=== PATIENT | male | born 1945 | race Caucasian/White ===

== ENCOUNTER 2021-03-28 09:25 | Outpatient (RCR) | payer MEDICARE ==
[~2021-03-28 09:25] MED LIST: ASCO-262 PO; ASPI-1238 PO; ATOR80TA76 PO; CALC-823 PO; LOSA100T57 PO; METO50TA7 PO; MULT-1061 PO; NFBIOT1000 PO; OMG1KC PO; OXYC-12 PO; PANT40TA52 PO; TICA90TA PO; UBID1CAP53 PO; VITA1TAB17 PO
== END 2021-04-05 | disposition home or self-care (01) ==
LOC: CR 09:25
PROVIDERS: ATTEND Family Medicine
DX: I21.4 Non-ST elevation (NSTEMI) myocardial infarction (principal); J90 Pleural effusion, not elsewhere classified; I51.7 Cardiomegaly
CPT/HCPCS: 93798

== ENCOUNTER → 2022-04-10 | Outpatient (CLI) | payer MEDICARE | LOC: CARD 09:08 | PROVIDERS: ATTEND Physician Assistant | DX: I25.10 Atherosclerotic heart disease of native coronary artery without angina pectoris (principal); I35.1 Nonrheumatic aortic (valve) insufficiency; I10 Essential (primary) hypertension | CPT/HCPCS: 93306 ==

== ENCOUNTER → 2022-05-14 | Outpatient (CLI) | payer MEDICARE | LOC: CARD 10:30 | PROVIDERS: ATTEND Family Medicine | DX: I49.9 Cardiac arrhythmia, unspecified (principal) | CPT/HCPCS: 93005 ==

== ENCOUNTER → 2023-01-08 | Outpatient (CLI) | payer MEDICARE ==
[~2023-01-08] MED LIST changes: +CATHETER FLUSH 10 ML SYR IVP PRN
[2023-01-08 08:54] VITALS: BP 139/85
[2023-01-08 09:00] VITALS: BP 180/80
--- NOTE | 2023-01-08 13:51 | Cardiology Stress Test Report ---
Stress Test Report Date of Procedure/Referring: Date of Procedure: Jan 08, 2023 PCP Rainer López DO Admitting Physician Admitting Physician: Attending Physician: Rosie Guzman Baseline Heart Rate: 58 Baseline Blood Pressure: Blood Pressure Systolic: 180 Blood Pressure Diastolic: 80 Vital Signs Date Time Temp Pulse Resp B/P (MAP) Pulse Ox O2 Delivery O2 Flow Rate FiO2 01/08/23 08:54 63 17 139/85 (103) 99 Baseline Vital Signs Vital Signs Date Time Temp Pulse Resp B/P (MAP) Pulse Ox O2 Delivery O2 Flow Rate FiO2 01/08/23 08:54 63 17 139/85 (103) 99 Baseline EKG: Baseline EKG: NSR Summary: After explaining the procedure and details to the patient, he signed the consent and was brought to the stress nuclear laboratory. Patient exercised on standard Luis Carlos protocol, EKG, heart rate and blood pressure were monitored continuously, resting and stress doses of radio tracer were injected, imaging was acquired and reviewed in the short axis, horizontal long axis and vertical long axis views Patient was able to exercise for a total of 4 minutes on Luis Carlos protocol, METs 5.8 Maximum heart rate 167 Maximum blood pressure 198/93 Stress EKG, Minimal nondiagnostic changes Recovery EKG, Return to baseline TID: 0.98 SSS: 5 SDS: 4 Conclusion: Fair exercise tolerance for a total of 4 minutes on standard Luis Carlos protocol, 5.8 METS achieving over 100% of maximal expected heart rate Appropriate heart rate response to exercise with hypertensive response to exercise with peak blood pressure 198/93 return to baseline during recovery Nondiagnostic EKG changes with exercise patient had nonspecific T wave abnormality with upsloping ST depression in lead II, 3, aVF, occasional PVCs. Diaphragmatic attenuation with mild decrease uptake at the mid to apical inferior wall with mild reversibility overall there is no significant ischemia or infarction on SPECT images No gated images were done on this study. Copy Copies To 1: RAINER LÓPEZ BASHAR J MD Jan 08, 2023 13:51
== END ==
LOC: CARD 06:59
PROVIDERS: ATTEND Physician Assistant
DX: I25.10 Atherosclerotic heart disease of native coronary artery without angina pectoris (principal); I10 Essential (primary) hypertension; J98.6 Disorders of diaphragm
CPT/HCPCS: 78452; A9502

== ENCOUNTER 2023-05-29 18:10 | Inpatient (IN) | payer MEDICARE ==
[~2023-05-29] VITALS: Ht 176.5 cm; Wt 81.0 kg
[~2023-05-29 18:10] MED LIST changes: -CATHETER FLUSH 10 ML SYR IVP PRN; -LOSA100T57 PO; +LOSA100T58 PO
--- NOTE | 2023-05-29 18:46 | ED Fall/Injury ---
General Chief Complaint: Hip/Pelvic Problems Stated Complaint: FELL WALKING DOG, WHOLE RT LEG PAIN Nursing Triage Note: PT STATES HE WAS WALKING TWO DOGS AND THEY PULLED HIM OVER, CC OF RT HIP/LEG PAIN, DENIES LOC, NO HEAD OR NECK PAIN. ABRASION TO RT KNEE AND CANNOT BEAR WEIGHT ON RT LEG Source: patient History of Present Illness Date Seen by Provider: May 29, 2023 Time Seen by Provider: 18:32 Initial Comments PT ARRIVES VIA POV, WHEELCHAIR ON ARRIVAL PT STATES HE WAS WALKING 2 DOGS AND THEY PULLED HIM OVER, AND HE FELL, LANDING ON HIS RIGHT HIP AND LEG--FELL ONTO PAVEMENT OCCURRED JUST PRIOR TO ARRIVAL DID NOT HIT HEAD AND NO LOSS OF CONSCIOUSNESS NO NECK OR BACK PAIN C/O PAIN FROM RIGHT HIP TO RIGHT KNEE AND STATES HE CANNOT BEAR WEIGHT ON RIGHT LEG HAS MINOR ABRASION TO RIGHT KNEE NO PARESTHESIAS OR MOTOR DEFICITS NO PRIOR INJURY OR PROBLEMS WITH THIS LEG/HIP PT IS ON ASPIRIN, NO OTHER BLOOD THINNERS PT HAS HISTORY OF CAD/IA/STENTS X 2 PT IS UP TO DATE ON TETANUS VACCINE PCP: DR. MANCUSO PARTS CONSULTANT: DR. COLEMAN Allergies and Home Medications Allergies Coded Allergies: No Known Drug Allergies (Verified , 04/06/09) Patient Home Medication List Ascorbate Calcium (Vitamin C) 500 Mg Tablet, 500 MG PO DAILY, (Reported) Entered as Reported by: YUSUF CARRERA on 12/21/20 115 Aspirin (Aspirin EC) 81 Mg Tablet.dr, 81 MG PO DAILY, (Reported) Entered as Reported by: YUSUF CARRERA on 12/21/20 115 Atorvastatin Calcium (Atorvastatin Calcium) 80 Mg Tablet, 80 MG PO HS Prescribed by: DEB COLEMAN on 12/23/20633 Biotin (Biotin) 1,000 Mcg Tablet, 1,000 MCG PO DAILY, (Reported) Entered as Reported by: YUSUF CARRERA on 12/21/20 115 Calcium Carbonate (Calcium) 500 Mg Tablet, 500 MG PO DAILY, (Reported) Entered as Reported by: YUSUF CARRERA on 12/21/20 115 Losartan Potassium (Losartan Potassium) 100 Mg Tablet, 100 MG PO DAILY Prescribed by: DEB COLEMAN on 12/23/20633 Metoprolol Succinate (Metoprolol Succinate) 50 Mg Tab.er.24h, 50 MG PO DAILY Prescribed by: DEB COLEMAN on 12/23/20633 Multivit-Min/FA/Lycopen/Lutein (Centrum Silver Men Tablet) 1 Each Tablet, 1 EACH PO DAILY, (Reported) Entered as Reported by: YUSUF CARRERA on 12/21/201153 [place] 3 Polyunsat Fatty Acids (Fish Oil 1,000 mg Capsule) 1,000 Mg Cap, 1,000 MG PO BID WITH MEALS Prescribed by: DEB COLEMAN on 12/23/20633 Pantoprazole Sodium (Pantoprazole Sodium) 40 Mg Tablet.dr, 40 MG PO DAILY Prescribed by: DEB COLEMAN on 12/23/20633 Ticagrelor (Brilinta) 90 Mg Tablet, 90 MG PO BID Prescribed by: DEB COLEMAN on 12/23/20633 Ubidecarenone/Vit E Acetate (Co Q-10 100 mg Softgel) 1 Each Capsule, 1 EACH PO DAILY, (Reported) Entered as Reported by: YUSUF CARRERA on 12/21/201153 Vitamin B Complex (Vitamin B Complex) 1 Each Tablet, 1 EACH PO DAILY, (Reported) Entered as Reported by: YUSUF CARRERA on 12/21/20 115 Review of Systems Review of Systems Constitutional: no symptoms reported Ears, Nose, Mouth, Throat: no symptoms reported Respiratory: no symptoms reported Cardiovascular: no symptoms reported Gastrointestinal: no symptoms reported Genitourinary: no symptoms reported Musculoskeletal: see HPI Skin: see HPI Psychiatric/Neurological: No Symptoms Reported Past Tshnbkm-Lxbzne-Sncokg Hx Patient Social History Tobacco Use?: No Substance use?: No Alcohol Use?: No Past Medical History Surgery/Hospitalization HX: AMI WITH STENTS Surgeries: Yes (BILAT INGUINAL HERNIA REPAIR X 2; CARDIAC CATH-STENTS X 2; LEFT KNEE SURGER) Abdominal, Cardiac, Coronary Stent, Orthopedic, Tonsillectomy Respiratory: No Cardiac: Yes (NSTEMI WITH STENTS X 2 TO LAD 12/2020) Coronary Artery Disease, Heart Attack, Hypertension Neurological: No Reproductive Disorders: No Sexually Transmitted Disease: No Genitourinary: No Gastrointestinal: Yes (INGUINAL HERNIAS) Abdominal Hernia Musculoskeletal: No Endocrine: No HEENT: No Cancer: No Psychosocial: No Integumentary: No Blood Disorders: No Family Medical History Heart Disease, CAD Over 55 Years Old Father - CAD, [place] Mother - CAD, COPD PAST SURGICAL HISTORY: -BILATERAL INGUINAL HERNIA REPAIRS -CARDIAC CATH WITH STENTS X 2 TO LAD 12/2020--BY DR. COLEMAN Physical Exam Vital Signs Vital Signs - First Documented 05/29/23 18:22 Temp 36.7 Pulse 74 Resp 18 B/P (MAP) 129/78 (95) Pulse Ox 93 O2 Delivery Room Air Capillary Refill : Less Than 3 Seconds Height, Weight, BMI Height: '" Weight: lbs. oz. kg; 24.00 BMI Method: General Appearance: WD/WN, no apparent distress, other (SMILING, TALKS NON-STOP AND VERY DIFFICULT TO KEEP ON SUBJECT--WANTS TO TALK ABOUT EVERYTHING EXCEPT WHY HE IS HERE. PT IS ABLE TO STAND AND BEAR WEIGHT ON RIGHT LEG WITH TRANSFER FROM WHEELCHAIR TO ER COT) Neck: normal inspection Cardiovascular: normal peripheral pulses, regular rate, rhythm, no murmur Respiratory: chest non-tender, normal breath sounds, no respiratory distress, no accessory muscle use Peripheral Pulses: 1+ Dorsalis Pedis (R), 1+ Left Dors-Pedis (L) Gastrointestinal: non tender, soft Back: normal inspection, no CVA tenderness, no vertebral tenderness Extremities: no pedal edema, no calf tenderness, normal capillary refill, other (MILD TENDERNESS FROM RIGHT HIP TO RIGHT KNEE. VERY MINOR ABRASION TO RIGHT KNEE--NO BLEEDING. NO SWELLING OR DEFORMITY. DISTAL MOTOR/SENSORY/VASCULAR INTA CT. ) Neurologic/Psychiatric: machine heel seat laster II-XII nml as tested, no motor/sensory deficits, alert, normal mood/affect, oriented x 3 Skin: normal color, warm/dry [place] Coma Score Best Eye Response: (4) Open Spontaneously Best Verbal Response: (5) Oriented Best Motor Response: (6) Obeys Commands [place] Total: 15 Progress/Results/Core Measures Results/Orders Lab Results Laboratory Tests Test 05/29/23 19:15 Range/Units White Blood Count 5.0 4.3-11.0 10^3/uL Red Blood Count 4.06 L 4.30-5.52 10^6/uL Hemoglobin 13.3 13.3-17.7 g/dL Hematocrit 41 40-54 % Mean Corpuscular Volume 101 H 80-99 fL Mean Corpuscular Hemoglobin 33 25-34 pg Mean Corpuscular Hemoglobin Concent 33 32-36 g/dL Red Cell Distribution Width 13.8 10.0-14.5 % Platelet Count 156 130-400 10^3/uL Mean Platelet Volume 10.9 9.0-12.2 fL Immature Granulocyte % (Auto) 0 % Neutrophils (%) (Auto) 58 42-75 % Lymphocytes (%) (Auto) 22 12-44 % Monocytes (%) (Auto) 11 0-12 % Eosinophils (%) (Auto) 8 0-10 % Basophils (%) (Auto) 1 0-10 % Neutrophils # (Auto) 2.9 1.8-7.8 10^3/uL Lymphocytes # (Auto) 1.1 1.0-4.0 10^3/uL Monocytes # (Auto) 0.5 0.0-1.0 10^3/uL Eosinophils # (Auto) 0.4 H 0.0-0.3 10^3/uL Basophils # (Auto) 0.0 0.0-0.1 10^3/uL Immature Granulocyte # (Auto) 0.0 0.0-0.1 10^3/uL Prothrombin Time 13.4 12.2-14.7 SEC INR Comment 1.0 0.8-1.4 Activated Partial Thromboplast Time 28 24-35 SEC My Orders Orders - MAX,CONG K DO Femur, Right, 2 Views (05/29/23 18:32) Knee, Right, 3 Views (05/29/23 18:32) Pelvis With Right Hip 2-3views (05/29/23 18:32) Ed Iv/Invasive Line Start (05/29/23 19:12) Monitor-Rhythm Ecg Trace Only (05/29/23 19:12) Cbc With Automated Diff (05/29/23 19:12) Comprehensive Metabolic Panel (05/29/23 19:12) Protime With Inr (05/29/23 19:12) Partial Thromboplastin Time (05/29/23 19:12) Ed Iv/Invasive Line Start (05/29/23 19:12) Lactated Ringers 1,000 Ml (Lactated Ring (05/29/23 19:15) Chest 1 View, Ap/Pa Only (05/29/23 19:12) Fentanyl Injection (Fentanyl Injection (05/29/23 19:12) Ekg Tracing (05/29/23 19:19) Ed Admission (Communication) (05/29/23 19:20) Medications Given in ED Current Medications Medications Dose Ordered Sig/Vivian Route Start Time Stop Time Status Last Admin Dose Admin Lactated Ringer's 1,000 ml @ 0 mls/hr Q0M ONCE IV 05/29/23 19:15 05/29/23 19:16 DC 05/29/23 19:34 1,000 MLS/HR Vital Signs/I&O 05/29/23 18:22 Temp 36.7 Pulse 74 Resp 18 B/P (MAP) 129/78 (95) Pulse Ox 93 O2 Delivery Room Air Blood Pressure Mean: 95 Initial ECG Impression Date: May 29, 2023 Initial ECG Impression Time: 19:32 Initial ECG Rate: 73 Initial ECG Rhythm: Normal Sinus (WITH PVC'S AND PAC'S; LAFB) Initial ECG Intervals AR 189 QRS 117 QT/QTC 379/405 Initial ECG Impression: Nonspecific Changes Diagnostic Imaging Comments XRAYS--PER RADIOLOGIST REPORTS AT 191 PELVIS AND RIGHT HIP-- FINDINGS: There is a minimally displaced right intertrochanteric femur fracture. The right hip is not dislocated. There is no joint space loss of the right hip. 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 The pubic symphysis and sacroiliac joints are normally aligned. There are degenerative changes of the imaged lower lumbar spine. IMPRESSION: 1. Very mildly displaced fracture of the right intertrochanteric femur. RIGHT FEMUR-- FINDINGS: There is a very mildly displaced right intertrochanteric femur fracture. The right hip is not dislocated. There is no joint space loss of the right hip. There is no identified additional fracture of the more mid to distal aspect of the right femur. IMPRESSION: 1. Very mildly displaced right intertrochanteric femur fracture. RIGHT KNEE-- FINDINGS: There is no identified acute fracture. The joint spaces are well preserved. There is no knee joint effusion. There is no radiopaque foreign body. IMPRESSION: 1. Unremarkable radiographs of the right knee. Reviewed: Reviewed by Me Departure Communication (Admissions) 1914--SPOKE WITH DR. ACEVES, ORTHOPEDIC SURGEON. ADVISES TO ADMIT TO HOSPITALIST. WILL PLAN ON TAKING TO SURGERY TOMORROW 1917--SPOKE WITH DR. PENDLETON, HOSPITALIST, ACCEPTS PT FOR ADMIT. SHE WILL DO ADMIT ORDERS. Impression Primary Impression: Closed intertrochanteric fracture of right hip Additional Impressions: HX OF CAD WITH STENTS HTN (hypertension) Disposition: ADMITTED INPATIENT Condition: Stable Admissions Decision to Admit Reason: Admit from ER (General) Decision to Admit/Date: May 29, 2023 Time/Decision to Admit Time: 19:15 Departure-Patient Inst. Referrals: RODNEY MANCUSO DO (PCP/Family) Primary Care Physician CONG SANTANA DO May 29, 2023 18:46
[2023-05-29] MEDS ORDERED: fentaNYL INJECTION 100 MCG/2 ML VIAL IVP STA (19:12)
--- NOTE | 2023-05-29 19:13 | Diagnostic Imaging Report ---
EXAMINATION: Right femur radiographs, 2 views, 4 images. COMPARISON: None. HISTORY: 78-year-old male, fall. Right femur pain. FINDINGS: There is a very mildly displaced right intertrochanteric femur fracture. The right hip is not dislocated. There is no joint space loss of the right hip. There is no identified additional fracture of the more mid to distal aspect of the right femur. IMPRESSION: 1. Very mildly displaced right intertrochanteric femur fracture. Dictated by: Dictated on workstation # [id number]
--- NOTE | 2023-05-29 19:13 | Diagnostic Imaging Report ---
EXAMINATION: Pelvis, single view. Right hip, 2 views. COMPARISON: None. HISTORY: 78-year-old male, injury. Right hip pain. FINDINGS: There is a minimally displaced right intertrochanteric femur fracture. The right hip is not dislocated. There is no joint space loss of the right hip. 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 The pubic symphysis and sacroiliac joints are normally aligned. There are degenerative changes of the imaged lower lumbar spine. IMPRESSION: 1. Very mildly displaced fracture of the right intertrochanteric femur. Dictated by: Dictated on workstation # [id number]
--- NOTE | 2023-05-29 19:14 | Diagnostic Imaging Report ---
EXAMINATION: Right knee radiographs, 3 views. COMPARISON: None. HISTORY: 78-year-old male, right knee pain. FINDINGS: There is no identified acute fracture. The joint spaces are well preserved. There is no knee joint effusion. There is no radiopaque foreign body. IMPRESSION: 1. Unremarkable radiographs of the right knee. Dictated by: Dictated on workstation # [id number]
[2023-05-29] MEDS ORDERED: LACTATED RINGERS 1,000 ML 1,000 ML IV ONE (19:15)
--- NOTE | 2023-05-29 19:26 | Diagnostic Imaging Report ---
EXAMINATION: Chest radiograph, portable AP view. DATE: 05/29/2023 7:21 PM INDICATION: 78-year-old male, fall. Chest pain. COMPARISON: December 20, 2020. FINDINGS: Heart size and mediastinal contours are unchanged. There is no identified pneumothorax. There is no large pleural effusion. There is no identified focal airspace consolidation. There are bilateral acromioclavicular degenerative changes. IMPRESSION: 1. No identified acute cardiopulmonary abnormality. Dictated by: Dictated on workstation # [id number]
[2023-05-29 19:27] LABS: BASOPHILS % (AUTO) 1 % (0-10); EOSINOPHILS # (AUTO) 0.4 10^3/uL (0.0-0.3); EOSINOPHILS % (AUTO) 8 % (0-10); HEMATOCRIT 41 % (40-54); HEMOGLOBIN 13.3 g/dL (13.3-17.7); LYMPHOCYTES # (AUTO) 1.1 10^3/uL (1.0-4.0); LYMPHOCYTES % (AUTO) 22 % (12-44); MEAN CORPUSCULAR HEMOGLOBIN 33 pg (25-34); MEAN CORPUSCULAR HGB CONC 33 g/dL (32-36); MEAN CORPUSCULAR VOLUME 101 fL (80-99); MEAN PLATELET VOLUME 10.9 fL (9.0-12.2); MONOCYTES # (AUTO) 0.5 10^3/uL (0.0-1.0); MONOCYTES % (AUTO) 11 % (0-12); NEUTROPHILS # (AUTO) 2.9 10^3/uL (1.8-7.8); NEUTROPHILS % (AUTO) 58 % (42-75); PLATELET COUNT 156 10^3/uL (130-400)
[2023-05-29 19:37] LABS: PROTHROMBIN TIME PATIENT 13.4 SEC (12.2-14.7)
[2023-05-29 19:52] LABS: ALBUMIN 3.8 GM/DL (3.2-4.5); BILIRUBIN,TOTAL 0.9 MG/DL (0.1-1.0); CALCIUM 9.3 MG/DL (8.5-10.1); CREATININE SERUM 1.89 MG/DL (0.60-1.30); POTASSIUM 4.7 MMOL/L (3.6-5.0); TOTAL PROTEIN 6.2 GM/DL (6.4-8.2)
[2023-05-29 20:56] VITALS: BP 163/85
[2023-05-29] MEDS ORDERED: diphenhydrAMINE 25 MG TABLET PO PRN (21:00)
[2023-05-29] MEDS ORDERED: CALCIUM CARBONATE 500 MG CHEW TABLET PO PRN (21:00)
[2023-05-29] MEDS ORDERED: diphenhydrAMINE INJ 50 MG/ML VIAL IVP PRN (21:00)
[2023-05-29] MEDS ORDERED: MILK OF MAGNESIA 400 MG/5 ML 30 ML UDC PO PRN (21:00)
[2023-05-29] MEDS ORDERED: BISACODYL 10 MG SUPPOSITORY PR PRN (21:00)
[2023-05-29] MEDS ORDERED: ANTACID SUSPENSION 30 ML UDC PO PRN (21:00)
[2023-05-29] MEDS ORDERED: LACTULOSE SYRUP 10GM/15ML 30ML UDC PO PRN (21:00)
[2023-05-29] MEDS ORDERED: hydrALAZINE INJECTION 20 MG/ML VIAL IV PRN (21:00)
[2023-05-29] MEDS ORDERED: ONDANSETRON 4 MG ORAL DISSOLVE TABLET PO PRN (21:00)
[2023-05-29] MEDS ORDERED: MELATONIN 3 MG TABLET PO PRN (21:00)
[2023-05-29] MEDS ORDERED: ACETAMINOPHEN 325 MG TABLET PO PRN (21:00)
[2023-05-29] MEDS ORDERED: ONDANSETRON INJECTION 4 MG/2 ML (SDV) IV PRN (21:00)
[2023-05-29] MEDS: inSUlin ASPART 1 UNIT/0.01 ML (PER UNIT) SC SCH (21:15)
[2023-05-29] MEDS: DOCUSATE SODIUM 100 MG CAPSULE PO SCH (21:16)
[2023-05-29] MEDS: SENNOSIDES 8.6 MG TABLET PO SCH (21:17)
[2023-05-29] MEDS: oxyCODONE IMMEDIATE RELEASE 5 MG TABLET PO PRN (21:56)
[2023-05-29] MEDS: NS IV 1000 ML 1,000 ML IV SCH (21:57)
[2023-05-29] MEDS: HYDROmorphone INJECTION 2 MG/ML VIAL IV PRN (23:38)
[2023-05-30] VITALS (14 sets, daily range): BP systolic 124–174; BP diastolic 69–98
[2023-05-30] MEDS: HYDROmorphone INJECTION 2 MG/ML VIAL IV PRN ×3 (02:47→18:46)
[2023-05-30] MEDS ORDERED: LIDOCAINE UROJET 2% GEL 10 ML PKG ONE (06:19)
[2023-05-30 06:25] LABS: BASOPHILS % (AUTO) 0 % (0-10); HEMATOCRIT 38 % (40-54); HEMOGLOBIN 12.6 g/dL (13.3-17.7); MEAN CORPUSCULAR HEMOGLOBIN 33 pg (25-34); MEAN CORPUSCULAR HGB CONC 33 g/dL (32-36); MEAN CORPUSCULAR VOLUME 98 fL (80-99)
[2023-05-30 06:27] LABS: EOSINOPHILS # (AUTO) 0.2 10^3/uL (0.0-0.3); EOSINOPHILS % (AUTO) 2 % (0-10); LYMPHOCYTES # (AUTO) 1.4 10^3/uL (1.0-4.0); LYMPHOCYTES % (AUTO) 18 % (12-44); MEAN PLATELET VOLUME 11.2 fL (9.0-12.2); MONOCYTES # (AUTO) 0.8 10^3/uL (0.0-1.0); MONOCYTES % (AUTO) 11 % (0-12); NEUTROPHILS % (AUTO) 68 % (42-75); PLATELET COUNT 128 10^3/uL (130-400); WHITE BLOOD COUNT 7.4 10^3/uL (4.3-11.0)
[2023-05-30 06:42] LABS: ALBUMIN 3.4 GM/DL (3.2-4.5); POTASSIUM 4.1 MMOL/L (3.6-5.0)
[2023-05-30 06:44] LABS: CALCIUM 8.8 MG/DL (8.5-10.1)
[2023-05-30 06:45] LABS: TOTAL PROTEIN 5.8 GM/DL (6.4-8.2)
--- NOTE | 2023-05-30 06:45 | Progress Note-Pre Operative ---
Pre-Operative Progress Note Date of Available H&P: May 30, 2023 Date H&P Reviewed: May 30, 2023 Time H&P Reviewed: 06:44 Changes from last HP none Pre-Operative Diagnosis: right intertrochanteric femur fracture ONEIDA ACEVES MD May 30, 2023 06:45
[2023-05-30 06:46] LABS: BILIRUBIN,TOTAL 0.9 MG/DL (0.1-1.0)
--- NOTE | 2023-05-30 06:46 | Progress Note-Post Operative ---
Post-Operative Progess Note Surgeon (s)/Application Design Engineer (s) Surgeon ONEIDA ACEVES MD Application Design Engineer: Frantz Terrell Pre-Operative Diagnosis right intertrochanteric femur fracture Post-Operative Diagnosis right intertrochanteric femur fracture Procedure & Operative Findings Date of Procedure 05/30/23 Procedure Performed/Findings right hip IM christiane Anesthesia Type GETA Estimated Blood Loss Estimated blood loss (mL): 100ml Specimens/Packing Specimens Removed none Packing: none ONEIDA ACEVES MD May 30, 2023 06:46
[2023-05-30 06:48] LABS: CREATININE SERUM 1.46 MG/DL (0.60-1.30)
--- NOTE | 2023-05-30 06:49 | Progress Note ---
Standard Progress Note Progress Notes/Assess & Plan Date Seen by a Provider: May 30, 2023 Time Seen by a Provider: 06:35 Progress/Assessment & Plan patient seen and examined consult dictated plan or OR this afternoon ONEIDA ACEVES MD May 30, 2023 06:49
[2023-05-30] MEDS: inSUlin ASPART 1 UNIT/0.01 ML (PER UNIT) SC SCH ×4 (06:52→20:25)
--- NOTE | 2023-05-30 06:57 | CONSULTATION REPORT ---
DATE OF SERVICE: 05/30/2023 REASON FOR CONSULTATION: Right intertrochanteric femur fracture. HISTORY OF PRESENT ILLNESS: The patient is a 78-year-old active gentleman who fell while walking his dogs. He complained of right hip pain and was found to have a minimally displaced right intertrochanteric femur fracture, for which I was consulted. He denies antecedent pain. ALLERGIES: No known drug allergies. MEDICATIONS: Calcium, aspirin, atorvastatin, losartan, metoprolol, pantoprazole, Brilinta. PAST MEDICAL HISTORY: Coronary artery disease with stent placement, hypertension. PAST SURGICAL HISTORY: Bilateral inguinal herniorrhaphy, coronary stent placement. ORTHOPEDIC EXAM: EXTREMITIES: The right lower extremity demonstrates tenderness laterally at his hip. He has intact dorsiflexion and plantarflexion of the toes. Pulses are symmetric. Sensation is intact to light touch. Radiographs reveal a nondisplaced right intertrochanteric femur fracture. IMPRESSION: Right intertrochanteric femur fracture. PLAN: Right hip intramedullary nail. The risks, benefits, options, ramifications and recovery were discussed at length with the patient. He understands and wishes to proceed. Job ID: [id number] DocumentID: [id number] Dictated Date: 05/30/2023 06:48:40 Ecosystem Ecology Professor Date: 05/30/2023 06:55:00 Dictated By: ONEIDA ACEVES MD
[2023-05-30] MEDS: SENNOSIDES 8.6 MG TABLET PO SCH ×2 (08:32→22:10)
[2023-05-30] MEDS: DOCUSATE SODIUM 100 MG CAPSULE PO SCH ×2 (08:32→22:10)
[2023-05-30] MEDS: NS IV 1000 ML 1,000 ML IV SCH ×2 (09:08→20:57)
--- NOTE | 2023-05-30 10:38 | Consultation-Cardiology ---
HPI-Cardiology Cardiology Consultation: Date of Consultation 05/30/23 Date of Admission Attending Physician Rainer López DO Admitting Physician Admitting Physician: Raeann Velázquez DO Attending Physician: Raeann Velázquez DO Consulting Physician PRICILA RUTHERFORD MD HPI: Time Seen by a Provider: 08:50 Mr. Ball is a 78-year-old gentleman with a history of CAD status post PCI in 2020, hypertension who presents after a fall. Patient sustained a right intertrochanteric femoral fracture. Cardiology is now consulted to aid in evaluation. Patient states that he remains active. He works out several days a week. He walks on the treadmill for 1 hour at 3.2 mph up to 3% incline, uses the weight machines and also lift free weights. He has no issues with doing this. He can climb a flight of stairs without any issue. With this specific occasion, he was walking his neighbors dogs. 1 dog ran off after car and he was pulled to the ground and dragged a bit. Stated that he was unable to get up and knew something was wrong with his right leg. He came into the emergency room was found to have a right intertrochanteric femoral fracture. He is now heading for open reduction and internal fixation. He denies any chest discomfort, shortness of breath, palpitations, presyncope, syncope, PND, orthopnea, lower extremity edema, acute onset pain radiating to his neck jaw or back. Chest x- ray is negative for any acute intrathoracic process. EKG demonstrates atrial bigeminy with PVCs, incomplete interventricular conduction delay and LVH with repolarization abnormalities, relatively stable from prior. Review of Systems-Cardiology All Other Systems Reviewed Negative Unless Noted: Yes (All systems were reviewed and are negative except what is been described in HPI) QNY-Ivjvva-Pxfley Hx Patient Social History Alcohol Use?: No Pt feels they are or have been: No Immunizations Up To Date Date of Pneumonia Vaccine: Sep 15, 2010 Past Medical History PMH As described under Assessment. Family Medical History Family Medical History: Father with [place] and CABG Social history: Tobacco: Denies EtOH: Rare Illicit: Denies Allergies and Home Medications Allergies Coded Allergies: No Known Drug Allergies (Verified , 04/06/09) Patient Home Medication List Home Medication List Reviewed: Yes Ascorbate Calcium (Vitamin C) 500 Mg Tablet, 500 MG PO DAILY, (Reported) Entered as Reported by: YUSUF CARRERA on 12/21/201153 Aspirin (Aspirin EC) 81 Mg Tablet.dr, 81 MG PO DAILY, (Reported) Entered as Reported by: YUSUF CARRERA on 12/21/201153 Last Action: Last Taken Edited Atorvastatin Calcium (Atorvastatin Calcium) 80 Mg Tablet, 80 MG PO HS Prescribed by: DEB COLEMAN on 12/23/20633 Last Action: Last Taken Edited Biotin (Biotin) 1,000 Mcg Tablet, 1,000 MCG PO DAILY, (Reported) Entered as Reported by: YUSUF CARRERA on 12/21/201153 Calcium Carbonate (Calcium) 500 Mg Tablet, 500 MG PO DAILY, (Reported) Entered as Reported by: YUSUF CARRERA on 12/21/201153 Losartan Potassium (Losartan Potassium) 100 Mg Tablet, 100 MG PO DAILY Prescribed by: DEB COLEMAN on 12/23/20633 Last Action: Last Taken Edited Metoprolol Succinate (Metoprolol Succinate) 50 Mg Tab.er.24h, 50 MG PO DAILY Prescribed by: DEB COLEMAN on 12/23/20633 Last Action: Last Taken Edited Multivit-Min/FA/Lycopen/Lutein (Centrum Silver Men Tablet) 1 Each Tablet, 1 EACH PO DAILY, (Reported) Entered as Reported by: YUSUF CARRERA on 12/21/201153 [place] 3 Polyunsat Fatty Acids (Fish Oil 1,000 mg Capsule) 1,000 Mg Cap, 1,000 MG PO BID WITH MEALS Prescribed by: DEB COLEMAN on 12/23/20633 Pantoprazole Sodium (Pantoprazole Sodium) 40 Mg Tablet.dr, 40 MG PO DAILY Prescribed by: DEB COLEMAN on 12/23/20633 Last Action: Last Taken Edited Ticagrelor (Brilinta) 90 Mg Tablet, 90 MG PO BID Prescribed by: DEB COLEMAN on 12/23/20633 Ubidecarenone/Vit E Acetate (Co Q-10 100 mg Softgel) 1 Each Capsule, 1 EACH PO DAILY, (Reported) Entered as Reported by: YUSUF CARRERA on 12/21/201153 Vitamin B Complex (Vitamin B Complex) 1 Each Tablet, 1 EACH PO DAILY, (Reported) Entered as Reported by: YUSUF CARRERA on 4/8/21 1154 Exam Vital Signs Vital Signs Date Time Temp Pulse Resp B/P (MAP) Pulse Ox O2 Delivery O2 Flow Rate FiO2 05/30/23 07:55 37.0 60 16 139/82 (101) 95 Room Air 05/29/23 21:20 21 Physical Exam Gen: NAD, resting comfortably Neck: No bruits, no JVD Lungs: CTA B; no w-r-r CV: nl s1/s2; no g-r; + 1-2/6 systolic murmur along LSB (likely flow murmur); regular rate and rhythm Abd: + BS, soft NT,ND; no hepatosplenomegaly. Ext: 2+ radial and DP pulses; no c-c-e, wwp Labs Laboratory Tests Test 05/29/23 19:15 05/30/23 05:46 Range/Units White Blood Count 5.0 7.4 4.3-11.0 10^3/uL Red Blood Count 4.06 L 3.85 L 4.30-5.52 10^6/uL Hemoglobin 13.3 12.6 L 13.3-17.7 g/dL Hematocrit 41 38 L 40-54 % Mean Corpuscular Volume 101 H 98 80-99 fL Mean Corpuscular Hemoglobin 33 33 25-34 pg Mean Corpuscular Hemoglobin Concent 33 33 32-36 g/dL Red Cell Distribution Width 13.8 13.8 10.0-14.5 % Platelet Count 156 128 L 130-400 10^3/uL Mean Platelet Volume 10.9 11.2 9.0-12.2 fL Immature Granulocyte % (Auto) 0 0 % Neutrophils (%) (Auto) 58 68 42-75 % Lymphocytes (%) (Auto) 22 18 12-44 % Monocytes (%) (Auto) 11 11 0-12 % Eosinophils (%) (Auto) 8 2 0-10 % Basophils (%) (Auto) 1 0 0-10 % Neutrophils # (Auto) 2.9 5.0 1.8-7.8 10^3/uL Lymphocytes # (Auto) 1.1 1.4 1.0-4.0 10^3/uL Monocytes # (Auto) 0.5 0.8 0.0-1.0 10^3/uL Eosinophils # (Auto) 0.4 H 0.2 0.0-0.3 10^3/uL Basophils # (Auto) 0.0 0.0 0.0-0.1 10^3/uL Immature Granulocyte # (Auto) 0.0 0.0 0.0-0.1 10^3/uL Prothrombin Time 13.4 12.2-14.7 SEC INR Comment 1.0 0.8-1.4 Activated Partial Thromboplast Time 28 24-35 SEC Sodium Level 143 143 135-145 MMOL/L Potassium Level 4.7 4.1 3.6-5.0 MMOL/L Chloride Level 111 H 112 H 98-107 MMOL/L Carbon Dioxide Level 25 20 L 21-32 MMOL/L Anion Gap 7 11 5-14 MMOL/L Blood Urea Nitrogen 31 H 27 H 7-18 MG/DL Creatinine 1.89 H 1.46 H 0.60-1.30 MG/DL Estimat Glomerular Filtration Rate 36 49 BUN/Creatinine Ratio 16 18 Glucose Level 124 H 96 70-105 MG/DL Calcium Level 9.3 8.8 8.5-10.1 MG/DL Corrected Calcium 9.5 9.3 8.5-10.1 MG/DL Total Bilirubin 0.9 0.9 0.1-1.0 MG/DL Aspartate Amino Transf (AST/SGOT) 36 H 33 5-34 U/L Alanine Aminotransferase (ALT/SGPT) 31 26 0-55 U/L Alkaline Phosphatase 89 86 40-136 U/L Total Protein 6.2 L 5.8 L 6.4-8.2 GM/DL Albumin 3.8 3.4 3.2-4.5 GM/DL Percent Immature Platelet Fraction 3.6 0.0-7.6 % ECG Impression ECG Comment Personal read of EKG demonstrates atrial bigeminy with PVCs, incomplete interventricular conduction delay, LVH with repolarization abnormalities, stable from prior A/P-Cardiology Plan 78-year-old gentleman with a history of CAD status post PCI in 2020, h ypertension who presents after a fall. Patient sustained a right intertrochanteric femoral fracture. Cardiology is now consulted to aid in evaluation. ##Preoperative risk ratification: Patient can climb a flight of stairs without any issue. Patient had a recent stress test in December 2022 which was negative for any ischemia. Patient is active works out daily and has no issues with his regimen. Denies any ischemic or heart failure type symptoms. He is a moderate cardiac risk patient going for a moderate noncardiac surgery. He is of acceptable risk to go forward. At this point time I would restart his cardiotonic regimen. ##Disposition: We will sign off for now. Please call back with any additional questions PRICILA RUTHERFORD MD May 30, 2023 10:38
[2023-05-30] MEDS ORDERED: HYDROmorphone INJECTION 2 MG/ML VIAL IVP ONE (11:30)
[2023-05-30] MEDS ORDERED: BUPIVACAINE 0.25% 30 ML VIAL ONE (11:59)
[2023-05-30] MEDS ORDERED: LIDOCAINE PF 2% 5 ML VIAL ONE (12:01)
[2023-05-30] MEDS ORDERED: SEVOFLURANE (ULTANE) 15 ML INHAL SOLN ONE (12:01)
[2023-05-30] MEDS ORDERED: proPOfol INJECTION 200 MG/20 ML VIAL IV ONE (12:01)
[2023-05-30] MEDS ORDERED: ONDANSETRON INJECTION 4 MG/2 ML (SDV) ONE (12:01)
[2023-05-30] MEDS ORDERED: fentaNYL INJECTION 100 MCG/2 ML VIAL ONE (12:01)
[2023-05-30] MEDS ORDERED: dexAMETHasone INJ 10 MG/ML 1 ML VIAL ONE (12:01)
--- NOTE | 2023-05-30 12:01 | History & Physical ---
EDOUARD DAVEY 05/30/23 1201: History of Present Illness History of Present Illness Reason for visit/HPI CC: Right hip pain HPI: This 78yo male presented to the ED on 05/29 after falling while walking the neighbor's dogs. Pt stated that he was talking to a neighbor while on the walk and one of the dogs took off after another dog passing by in a car. When this happened, pt fell on right leg/hip and had immediate pain and felt like he wasn't able to move. He is non-weight bearing on right leg. Pt denies LOC, head/neck pain, parasthesias, or motor deficits. He did notice an abrasion on right knee. Date of Admission May 29, 2023 at 20:27 Date Seen by a Provider: May 30, 2023 Time Seen by a Provider: 09:00 I consulted on this patient on 05/30/23 11:52 Attending Physician Rainer López DO Admitting Physician Admitting Physician: Raeann Pendleton DO Attending Physician: Raeann Pendleton DO Consult Allergies and Home Medications Allergies Coded Allergies: No Known Drug Allergies (Verified , 04/06/09) Patient Home Medication List Home Medication List Reviewed: Yes Aspirin (Aspirin EC) 81 Mg Tablet.dr, 81 MG PO DAILY, (Reported) Entered as Reported by: YUSUF CARRERA on 12/21/20 1154 Last Action: Reviewed Atorvastatin Calcium (Atorvastatin Calcium) 80 Mg Tablet, 80 MG PO HS, (Reported) Entered as Reported by: YUSUF CARRERA on 05/30/234 Last Action: Reviewed Cyanocobalamin (Vitamin B-12) (Vitamin B-12) 1,000 Mcg Tablet, 1,000 MCG PO DAILY, (Reported) Entered as Reported by: YUSUF CARRERA on 05/30/231223 Last Action: Reviewed Losartan Potassium (Losartan Potassium) 100 Mg Tablet, 100 MG PO DAILY, (Reported) Entered as Reported by: YUSUF CARRERA on 05/30/231223 Last Action: Reviewed Metoprolol Succinate (Metoprolol Succinate) 50 Mg Tab.er.24h, 50 MG PO DAILY, (Reported) Entered as Reported by: YUSUF CARRERA on 05/30/231223 Last Action: Reviewed Multivitamin (Multivitamin) 1 Each Tablet, 1 EACH PO DAILY, (Reported) Entered as Reported by: YUSUF CARRERA on 05/30/231223 Last Action: Reviewed Pantoprazole Sodium (Pantoprazole Sodium) 40 Mg Tablet.dr, 40 MG PO DAILY, (Reported) Entered as Reported by: YUSUF CARRERA on 05/30/231223 Last Action: Reviewed Discontinued Medications Ascorbate Calcium (Vitamin C) 500 Mg Tablet, 500 MG PO DAILY, (Reported) Discontinued Reason: No Longer Taking Entered as Reported by: YUSUF CARRERA on 12/21/201153 Last Action: Discontinued Atorvastatin Calcium (Atorvastatin Calcium) 80 Mg Tablet, 80 MG PO HS Discontinued Reason: No Longer Taking Prescribed by: DEB COLEMAN on 12/23/20633 Last Action: Discontinued Biotin (Biotin) 1,000 Mcg Tablet, 1,000 MCG PO DAILY, (Reported) Discontinued Reason: No Longer Taking Entered as Reported by: YUSUF CARRERA on 12/21/201153 Last Action: Discontinued Calcium Carbonate (Calcium) 500 Mg Tablet, 500 MG PO DAILY, (Reported) Discontinued Reason: No Longer Taking Entered as Reported by: YUSUF CARRERA on 12/21/201153 Last Action: Discontinued Losartan Potassium (Losartan Potassium) 100 Mg Tablet, 100 MG PO DAILY Discontinued Reason: No Longer Taking Prescribed by: DEB COLEMAN on 12/23/20633 Last Action: Discontinued Metoprolol Succinate (Metoprolol Succinate) 50 Mg Tab.er.24h, 50 MG PO DAILY Discontinued Reason: No Longer Taking Prescribed by: DEB COLEMAN on 12/23/20633 Last Action: Discontinued Multivit-Min/FA/Lycopen/Lutein (Centrum Silver Men Tablet) 1 Each Tablet, 1 EACH PO DAILY, (Reported) Discontinued Reason: No Longer Taking Entered as Reported by: YUSUF CARRERA on 12/21/201153 Last Action: Discontinued [place] 3 Polyunsat Fatty Acids (Fish Oil 1,000 mg Capsule) 1,000 Mg Cap, 1,000 MG PO BID WITH MEALS Discontinued Reason: No Longer Taking Prescribed by: DEB COLEMAN on 12/23/20633 Last Action: Discontinued Pantoprazole Sodium (Pantoprazole Sodium) 40 Mg Tablet.dr, 40 MG PO DAILY Discontinued Reason: No Longer Taking Prescribed by: DEB COLEMAN on 12/23/20633 Last Action: Discontinued Ticagrelor (Brilinta) 90 Mg Tablet, 90 MG PO BID Discontinued Reason: No Longer Taking Prescribed by: DEB COLEMAN on 12/23/20 0634 Last Action: Discontinued Ubidecarenone/Vit E Acetate (Co Q-10 100 mg Softgel) 1 Each Capsule, 1 EACH PO DAILY, (Reported) Discontinued Reason: No Longer Taking Entered as Reported by: YUSUF CARRERA on 12/21/20 1154 Last Action: Discontinued Vitamin B Complex (Vitamin B Complex) 1 Each Tablet, 1 EACH PO DAILY, (Reported) Discontinued Reason: No Longer Taking Entered as Reported by: YUSUF CARRERA on 12/21/20 1154 Last Action: Discontinued Past Ekjakwe-Jabnqy-Cdtips Hx Patient Social History Marrital Status: single Number of Children: 0 Employed/Student: employed Tobacco Use?: Yes Substance use?: No Alcohol Use?: No Pt feels they are or have been: No Immunizations Up To Date Tetanus Booster (TDap): More Than 5 Years Hepatitis A: No Hepatitis B: No Date of Pneumonia Vaccine: Sep 15, 2010 Current Status Advance Directives: No Communicates: Verbally Primary Language: Brazilian Preferred Spoken Language: Brazilian Is interpretation needed?: No Sensory deficits: Hearing impairment Past Medical History Surgeries: Abdominal, Cardiac, Coronary Stent, Orthopedic, Tonsillectomy Coronary Artery Disease, Heart Attack, Hypertension Sexually Transmitted Disease: No Abdominal Hernia Blood Disorders: No Family Medical History Heart Disease, CAD Over 55 Years Old Father - CAD, [place] Mother - CAD, COPD PAST SURGICAL HISTORY: -BILATERAL INGUINAL HERNIA REPAIRS -CARDIAC CATH WITH STENTS X 2 TO LAD 12/2020--BY DR. COLEMAN Review of Systems Constitutional: No chills, No diaphoresis, No dizziness, No fever Respiratory: No cough, No dyspnea on exertion, No short of breath Cardiovascular: No chest pain, No palpitations Gastrointestinal: no symptoms reported Psychiatric/Neurological: Denies Anxiety, Denies Depressed, Denies Numbness, Denies Paresthesia, Denies Tingling Physical Exam Vital Signs Vital Signs - First Documented 05/29/23 05/29/23 18:22 21:20 Temp 36.7 Pulse 74 Resp 18 B/P (MAP) 129/78 (95) Pulse Ox 93 O2 Delivery Room Air FiO2 21 Capillary Refill : Less Than 3 Seconds Height, Weight, BMI Height: '" Weight: lbs. oz. kg; 26.00 BMI Method: General Appearance: No Apparent Distress (although he states that he is in immense pain), WD/WN Respiratory: Chest Non Tender, Lungs Clear, Normal Breath Sounds, No Accessory Muscle Use, No Respiratory Distress Cardiovascular: Regular Rate, Rhythm, No Edema, No JVD, No Murmur, Normal Peripheral Pulses Neurologic/Psychiatric: Alert, Oriented x3, No Motor/Sensory Deficits, Normal Mood/Affect Skin: Normal Color, Warm/Dry Assessment/Plan Assessment and Plan Assessment 1. Mildly Displaced Right Intertrochanteric Femur Fracture 2. ANNETTE Plan 1 Ortho Consult and Surgery 2. Pain control management 3. IV Fluids PRN Surgical benefits outweigh risks. It would be prudent to proceed with surgery. Admission Diagnosis Mildly Displaced Right Intertrochanteric Femur Fracture Admission Status: Observation Clinical Quality Measures DVT/VTE Risk/Contraindication: Contraindications-Pharm: Other *list below* Other: OR RAEANN PENDLETON DO 05/30/23 2222: History of Present Illness History of Present Illness Reason for visit/HPI Chief complaint: Right hip fracture HPI: This is a 78-year-old male Clinic patient of Dr López who presented following a fall at home when he was walking his neighbors dogs. Currently he is ready for surgery. Echocardiogram will be obtained and cardiology consultation due to history of CAD.. Allergies and Home Medications Allergies Coded Allergies: No Known Drug Allergies (Verified , 04/06/09) Patient Home Medication List Aspirin (Aspirin EC) 81 Mg Tablet., 81 MG PO DAILY, (Reported) Entered as Reported by: UYSUF CARRERA on 12/21/20 1154 Last Action: Reviewed Atorvastatin Calcium (Atorvastatin Calcium) 80 Mg Tablet, 80 MG PO HS, (Reported) Entered as Reported by: YUSUF CARRERA on 05/30/23 122 Last Action: Reviewed Cyanocobalamin (Vitamin B-12) (Vitamin B-12) 1,000 Mcg Tablet, 1,000 MCG PO DAILY, (Reported) Entered as Reported by: YUSUF CARRERA on 05/30/231223 Last Action: Reviewed Losartan Potassium (Losartan Potassium) 100 Mg Tablet, 100 MG PO DAILY, (Reported) Entered as Reported by: YUSUF CARRERA on 05/30/234 Last Action: Reviewed Metoprolol Succinate (Metoprolol Succinate) 50 Mg Tab.er.24h, 50 MG PO DAILY, (Reported) Entered as Reported by: YUSUF CARRERA on 05/30/231223 Last Action: Reviewed Multivitamin (Multivitamin) 1 Each Tablet, 1 EACH PO DAILY, (Reported) Entered as Reported by: YUSUF CARRERA on 05/30/231223 Last Action: Reviewed Pantoprazole Sodium (Pantoprazole Sodium) 40 Mg Tablet.dr, 40 MG PO DAILY, (Reported) Entered as Reported by: YUSUF CARRERA on 05/30/231223 Last Action: Reviewed Discontinued Medications Ascorbate Calcium (Vitamin C) 500 Mg Tablet, 500 MG PO DAILY, (Reported) Discontinued Reason: No Longer Taking Entered as Reported by: YUSUF CARRERA on 12/21/201153 Last Action: Discontinued Atorvastatin Calcium (Atorvastatin Calcium) 80 Mg Tablet, 80 MG PO HS Discontinued Reason: No Longer Taking Prescribed by: DEB COLEMAN on 12/23/20633 Last Action: Discontinued Biotin (Biotin) 1,000 Mcg Tablet, 1,000 MCG PO DAILY, (Reported) Discontinued Reason: No Longer Taking Entered as Reported by: YUSUF CARRERA on 12/21/201153 Last Action: Discontinued Calcium Carbonate (Calcium) 500 Mg Tablet, 500 MG PO DAILY, (Reported) Discontinued Reason: No Longer Taking Entered as Reported by: YUSUF CARRERA on 12/21/201153 Last Action: Discontinued Losartan Potassium (Losartan Potassium) 100 Mg Tablet, 100 MG PO DAILY Discontinued Reason: No Longer Taking Prescribed by: DEB COLEMAN on 12/23/20633 Last Action: Discontinued Metoprolol Succinate (Metoprolol Succinate) 50 Mg Tab.er.24h, 50 MG PO DAILY Discontinued Reason: No Longer Taking Prescribed by: DEB COLEMAN on 12/23/20633 Last Action: Discontinued Multivit-Min/FA/Lycopen/Lutein (Centrum Silver Men Tablet) 1 Each Tablet, 1 EACH PO DAILY, (Reported) Discontinued Reason: No Longer Taking Entered as Reported by: YUSUF CARRERA on 12/21/201153 Last Action: Discontinued [place] 3 Polyunsat Fatty Acids (Fish Oil 1,000 mg Capsule) 1,000 Mg Cap, 1,000 MG PO BID WITH MEALS Discontinued Reason: No Longer Taking Prescribed by: DEB COLEMAN on 12/23/20633 Last Action: Discontinued Pantoprazole Sodium (Pantoprazole Sodium) 40 Mg Tablet.dr, 40 MG PO DAILY Discontinued Reason: No Longer Taking Prescribed by: DEB COLEMAN on 12/23/20633 Last Action: Discontinued Ticagrelor (Brilinta) 90 Mg Tablet, 90 MG PO BID Discontinued Reason: No Longer Taking Prescribed by: DEB COLEMAN on 12/23/20633 Last Action: Discontinued Ubidecarenone/Vit E Acetate (Co Q-10 100 mg Softgel) 1 Each Capsule, 1 EACH PO DAILY, (Reported) Discontinued Reason: No Longer Taking Entered as Reported by: YUSUF CARRERA on 12/21/201153 Last Action: Discontinued Vitamin B Complex (Vitamin B Complex) 1 Each Tablet, 1 EACH PO DAILY, (Reported) Discontinued Reason: No Longer Taking Entered as Reported by: YSUUF CARRERA on 12/21/201153 Last Action: Discontinued Past Pakjwju-Wllbfo-Blbnxf Hx Patient Social History Marrital Status: single Employed/Student: retired Past Medical History Surgeries: Coronary Stent Review of Systems Constitutional: see HPI Musculoskeletal: joint pain Physical Exam General Appearance: No Apparent Distress, WD/WN Respiratory: Lungs Clear, Normal Breath Sounds Cardiovascular: Regular Rate, Rhythm Neurologic/Psychiatric: Alert, Oriented x3 Assessment/Plan Assessment and Plan Assessment: Right intertrochanteric femur fracture Acute kidney injury CAD previous stent Plan: Surgical benefits outweigh medical risk Problems: (1) Closed intertrochanteric fracture of right hip Admission Diagnosis Admission Status: Inpatient Order (span 2 midnights) Reason for Inpatient Admission: hip fx Supervisory-Addendum Brief Verification & Attestation Participated in pt care: history, MDM, physical Personally performed: exam, history, MDM, supervision of care Care discussed with: Medical Student Procedures: n/a Results interpretation: Verified all documentation Verification and Attestation of Medical Student E/M Service A medical student performed and documented this service in my presence. I reviewed and verified all information documented by the medical student and made modifications to such information, when appropriate. I personally performed the physical exam and medical decision making. Raeann Pendleton, May 30, 2023,22:21 EDOUARD DAVEY May 30, 2023 12:01 RAEANN PENDLETON DO May 30, 2023 22:22
[2023-05-30] MEDS ORDERED: CYAN-41 PO (12:24)
[2023-05-30] MEDS ORDERED: METO50TA7 PO (12:24)
[2023-05-30] MEDS ORDERED: LOSA100T58 PO (12:24)
[2023-05-30] MEDS ORDERED: ATOR80TA76 PO (12:24)
[2023-05-30] MEDS ORDERED: MULT-1136 PO (12:24)
[2023-05-30] MEDS ORDERED: PANT40TA52 PO (12:24)
[2023-05-30] MEDS ORDERED: ceFAZolin INJECTION 2,000 MG ONE (12:52)
[2023-05-30] MEDS ORDERED: HYDROcodone/ACETAMINOPHEN 7.5 MG/325 MG TABLET PO PRN (13:15)
[2023-05-30] MEDS ORDERED: ONDANSETRON INJECTION 4 MG/2 ML (SDV) IVP PRN ×2 (13:15→14:30)
[2023-05-30] MEDS ORDERED: NALOXONE 0.4 MG/ML 1 ML VIAL IV PRN (13:15)
[2023-05-30] MEDS ORDERED: morphine INJ 4 MG/ML 1 ML (VIAL/SYRINGE) IVP PRN (13:15)
[2023-05-30] MEDS ORDERED: ceFAZolin INJECTION 2,000 MG in NS (IVPB) 50 ML 50 ML IV ONE (13:45)
[2023-05-30] MEDS ORDERED: PHENYLEPHRINE 100 MCG/ML 10 ML (ANESTHESIA) SYR ONE (13:54)
--- NOTE | 2023-05-30 13:56 | Diagnostic Imaging Report ---
INDICATION: Femur fracture, ORIF. 3 intraprocedural images right hip/femur Ka,r: 10.69 mGy Fluoroscopic time: 67.5 seconds The hospital radiology department provided fluoroscopic imaging in support of an interventional procedure. No radiologist involvement and/or interpretation. Please reference the operating provider's procedure note. IMPRESSION: Intraprocedural technical imaging provided. Dictated by: Dictated on workstation # [id number]
[2023-05-30] MEDS ORDERED: fentaNYL INJECTION 100 MCG/2 ML VIAL IVP ONE (14:30)
[2023-05-30] MEDS: ceFAZolin INJECTION 2,000 MG in NS (IVPB) 50 ML 50 ML IV SCH (20:57)
--- NOTE | 2023-05-30 22:07 | OPERATIVE REPORT ---
DATE OF SERVICE: 05/30/2023 PREOPERATIVE DIAGNOSIS: Right intertrochanteric femur fracture. POSTOPERATIVE DIAGNOSIS: Right intertrochanteric femur fracture. PROCEDURE: Right hip intramedullary christiane. SURGEON: Azeem Aceves MD PERSONAL FITNESS TRAINER: Frantz Terrell, who assisted throughout the procedure and closed the incisions. ANESTHESIA: General endotracheal by Lino Romero CRNA. ESTIMATED BLOOD LOSS: 100 mL. DRAINS: None. COMPLICATIONS: None. MATERIALS: Synthes TFN 11 mm short nail with 105 mm blade. POSTOPERATIVE PLAN: Weightbearing as tolerated, right lower extremity. The patient was transferred to the recovery room awake and stable condition. STATEMENT OF MEDICAL NECESSITY: The patient is a 78-year-old gentleman who fell last evening while walking his dogs. He presented to the Emergency Department where he was found to have an intertrochanteric femur fracture. The patient was counseled regarding treatment options and elected to proceed with surgical intervention. DESCRIPTION OF PROCEDURE: After risks and benefits of the procedure were discussed and questions were answered and informed consent signed and placed on chart. The operative site was confirmed in the preoperative holding area initialed by surgeon. The patient was then transferred to the operating room. After adequate levels of general endotracheal anesthetic were obtained, a timeout was called, confirming the operative site. Longitudinal traction was applied. Fluoroscopy in AP and lateral planes revealed anatomic reduction of the fracture. The right hip and lower extremity were prepped and draped in the usual sterile fashion. A longitudinal incision was made from the greater trochanter extending proximally. The iliotibial band was incised in line with the incision. The guidewire was passed into the femoral canal. This was confirmed to be well positioned in the AP and lateral planes radiographically. This was then overdrilled and 11 mm short nail was placed. Again, fluoroscopy with AP and lateral planes revealed well placed hardware. Through a percutaneous incision, the guidewire was passed into the femoral head. This was felt to be well positioned in an AP and lateral planes. This was then drilled laterally and a 105 mm blade was placed. This was then compressed and the distal locking screw was placed through the same percutaneous incision distally. Fluoroscopy in AP, lateral and oblique planes revealed anatomic reduction of the fracture with well placed hardware. The wounds were copiously irrigated. 0 Vicryl was used for the deep subcutaneous layer proximally, 2-0 Vicryl was used for the superficial subcutaneous layers of both incisions and both incisions were closed with jimenez. The incisions were infiltrated with plain Marcaine. A soft dressing was applied. The patient was transferred to recovery room awake and stable condition. Job ID: [id number] DocumentID: [id number] Dictated Date: 05/30/2023 13:51:57 Registered Nurse Cardi[facility] Date: 05/30/2023 22:05:00 Dictated By: AZEEM ACEVES MD
[2023-05-30] MEDS: oxyCODONE IMMEDIATE RELEASE 5 MG TABLET PO PRN (22:33)
[2023-05-31] MEDS: ceFAZolin INJECTION 2,000 MG in NS (IVPB) 50 ML 50 ML IV SCH (04:40)
[2023-05-31 04:42] VITALS: BP 122/70
[2023-05-31] MEDS: oxyCODONE IMMEDIATE RELEASE 5 MG TABLET PO PRN ×3 (04:49→19:46)
[2023-05-31] MEDS: inSUlin ASPART 1 UNIT/0.01 ML (PER UNIT) SC SCH ×4 (05:13→19:57)
[2023-05-31] MEDS: NS IV 1000 ML 1,000 ML IV SCH (05:13)
[2023-05-31 05:34] LABS: BASOPHILS % (AUTO) 0 % (0-10); EOSINOPHILS % (AUTO) 0 % (0-10); HEMOGLOBIN 10.8 g/dL (13.3-17.7)
[2023-05-31 05:36] LABS: HEMATOCRIT 32 % (40-54); LYMPHOCYTES # (AUTO) 0.6 10^3/uL (1.0-4.0); LYMPHOCYTES % (AUTO) 6 % (12-44); MEAN CORPUSCULAR HEMOGLOBIN 33 pg (25-34); MEAN CORPUSCULAR HGB CONC 34 g/dL (32-36); MEAN CORPUSCULAR VOLUME 98 fL (80-99); MEAN PLATELET VOLUME 11.1 fL (9.0-12.2); MONOCYTES % (AUTO) 10 % (0-12); NEUTROPHILS # (AUTO) 8.1 10^3/uL (1.8-7.8); NEUTROPHILS % (AUTO) 83 % (42-75); PLATELET COUNT 137 10^3/uL (130-400); WHITE BLOOD COUNT 9.8 10^3/uL (4.3-11.0)
[2023-05-31 06:09] LABS: ALBUMIN 3.1 GM/DL (3.2-4.5); CALCIUM 8.3 MG/DL (8.5-10.1); CREATININE SERUM 1.36 MG/DL (0.60-1.30); POTASSIUM 4.5 MMOL/L (3.6-5.0); TOTAL PROTEIN 5.1 GM/DL (6.4-8.2)
[2023-05-31 06:18] LABS: LYMPHOCYTES % (MANUAL) 3 %; MONOCYTES % (MANUAL) 6 %; NEUTROPHILS % (MANUAL) 91 %; RBC MORPH NORMAL
[2023-05-31 07:19] VITALS: BP 120/63
[2023-05-31] MEDS: SENNOSIDES 8.6 MG TABLET PO SCH ×2 (08:27→19:46)
[2023-05-31] MEDS: ENOXAPARIN 40 MG/0.4 ML SYRINGE SC SCH (08:27)
[2023-05-31] MEDS: DOCUSATE SODIUM 100 MG CAPSULE PO SCH ×2 (08:27→19:46)
--- NOTE | 2023-05-31 08:48 | Progress Note ---
Standard Progress Note Progress Notes/Assess & Plan Date Seen by a Provider: May 31, 2023 Time Seen by a Provider: 08:47 Progress/Assessment & Plan patient seen and examined consult dictated plan or OR this afternoon Final Diagnosis report no pain Vital Signs Date Time Temp Pulse Resp B/P (MAP) Pulse Ox O2 Delivery O2 Flow Rate FiO2 05/31/23 08:02 92 Room Air 0.00 05/31/23 07:19 36.4 95 17 120/63 (82) 92 Room Air 05/31/23 07:00 95 05/31/23 04:42 37.5 92 18 122/70 (87) 92 Room Air 05/31/23 01:00 86 05/30/23 23:36 36.1 79 20 124/78 (93) 93 Room Air 05/30/23 20:59 Room Air 05/30/23 20:49 91 Room Air 05/30/23 19:15 36.8 100 18 167/98 (121) 95 Room Air 05/30/23 19:00 99 05/30/23 15:15 36.4 87 18 146/85 (105) 92 Room Air 05/30/23 14:45 Room Air 05/30/23 14:45 36.5 18 165/82 (109) 98 Room Air 05/30/23 14:40 Room Air 05/30/23 14:40 18 168/97 (120) 96 Room Air 05/30/23 14:31 Room Air 05/30/23 14:30 18 174/85 (114) 98 Room Air 05/30/23 14:28 Room Air 05/30/23 14:22 Room Air 05/30/23 14:20 18 165/86 (112) 100 Room Air 05/30/23 14:17 OxyMask 3.00 05/30/23 14:10 OxyMask 6.00 05/30/23 14:10 18 151/74 (99) 100 OxyMask 6.00 05/30/23 14:00 18 163/77 (105) 100 OxyMask 6.00 05/30/23 13:58 OxyMask 6.00 05/30/23 13:58 36.3 11 164/69 (100) 100 OxyMask 6.00 05/30/23 12:46 79 05/30/23 12:18 36.8 74 16 169/75 (106) 95 Room Air I & O 05/31/23 07:00 Intake Total 3670 ml Output Total 1350 ml Balance 2320 ml Laboratory Tests Test 05/30/23 11:29 05/30/23 15:48 05/30/23 20:05 05/31/23 04:40 Range/Units Glucometer 88 98 143 H 127 H 70-110 MG/DL Test 05/31/23 05:10 Range/Units White Blood Count 9.8 4.3-11.0 10^3/uL Red Blood Count 3.24 L 4.30-5.52 10^6/uL Hemoglobin 10.8 L 13.3-17.7 g/dL Hematocrit 32 L 40-54 % Mean Corpuscular Volume 98 80-99 fL Mean Corpuscular Hemoglobin 33 25-34 pg Mean Corpuscular Hemoglobin Concent 34 32-36 g/dL Red Cell Distribution Width 13.9 10.0-14.5 % Platelet Count 137 130-400 10^3/uL Mean Platelet Volume 11.1 9.0-12.2 fL Immature Granulocyte % (Auto) 0 % Neutrophils (%) (Auto) 83 H 42-75 % Lymphocytes (%) (Auto) 6 L 12-44 % Monocytes (%) (Auto) 10 0-12 % Eosinophils (%) (Auto) 0 0-10 % Basophils (%) (Auto) 0 0-10 % Neutrophils # (Auto) 8.1 H 1.8-7.8 10^3/uL Lymphocytes # (Auto) 0.6 L 1.0-4.0 10^3/uL Monocytes # (Auto) 1.0 0.0-1.0 10^3/uL Eosinophils # (Auto) 0.0 0.0-0.3 10^3/uL Basophils # (Auto) 0.0 0.0-0.1 10^3/uL Immature Granulocyte # (Auto) 0.0 0.0-0.1 10^3/uL Neutrophils % (Manual) 91 % Lymphocytes % (Manual) 3 % Monocytes % (Manual) 6 % Percent Immature Platelet Fraction 3.5 0.0-7.6 % Blood Morphology Comment NORMAL Sodium Level 140 135-145 MMOL/L Potassium Level 4.5 3.6-5.0 MMOL/L Chloride Level 109 H 98-107 MMOL/L Carbon Dioxide Level 22 21-32 MMOL/L Anion Gap 9 5-14 MMOL/L Blood Urea Nitrogen 25 H 7-18 MG/DL Creatinine 1.36 H 0.60-1.30 MG/DL Estimat Glomerular Filtration Rate 54 BUN/Creatinine Ratio 18 Glucose Level 135 H 70-105 MG/DL Calcium Level 8.3 L 8.5-10.1 MG/DL Corrected Calcium 9.0 8.5-10.1 MG/DL Total Bilirubin 1.0 0.1-1.0 MG/DL Aspartate Amino Transf (AST/SGOT) 26 5-34 U/L Alanine Aminotransferase (ALT/SGPT) 20 0-55 U/L Alkaline Phosphatase 70 40-136 U/L Total Protein 5.1 L 6.4-8.2 GM/DL Albumin 3.1 L 3.2-4.5 GM/DL R hip dressings intact intact DF and PF of toes and ankle sensation intact throughout to light touch s/p R hip IM christiane PT ONEIDA ACEVES MD May 31, 2023 08:48
--- NOTE | 2023-05-31 09:50 | Physical Therapy Evaluation ---
PT Evaluation-General Medical Diagnosis Admission Date May 29, 2023 at 20:27 Medical Diagnosis: (R) hip ORIF Onset Date: May 29, 2023 Therapy Diagnosis Therapy Diagnosis: difficulty walking Precautions Precautions/Isolations: Standard Precautions Weight Bear Status Right Lower Extremity: Right Partial Weight Bearing Left Lower Extremity: Left Full Weight Bearing Referral Physician: Shelby Reason for Referral: Evaluation/Treatment Social History Home: Single Level Current Living Status: PT Steps Into Home: 1 PT Steps Inside Home: 0 Prior Prior Level of Function SCALE: Activities may be completed with or without assistive devices. 9-Jfxospsfvu-afmeyfz completes the activity by him/herself with no assistance from a helper. 5-Set-up or Clean-up Assistance-helper sets up or cleans up; patient completes activity. [place] assists only prior to or following the activity. 4-Supervision or Touching Assistance-helper provides verbal cues and/or touching/steadying and/or contact guard assistance as patient completes activity. Assistance may be provided throughout the activity or intermittently. 3-Partial/Moderate Assistance-helper does LESS THAN HALF the effort. [place] lifts, holds or supports trunk or limbs, but provides less than half the effort. 2-Substantial/Maximal Assistance-helper does MORE THAN HALF the effort. [place] lifts or holds trunk or limbs and provides more than half the effort. 9-Ynwodukqk-cyqgjm does ALL the effort. Patient does none of the effort to complete the activity. Or, the assistance of 2 or more helpers is required for the patient to complete the activity. If activity was not attempted, code reason: 7-Patient Refused. 9-Not Applicable-not attempted and the patient did not perform the activity before the current illness, exacerbation or injury. 10-Not Attempted due to Environmental Limitations-(lack of equipment, weather restraints, etc.). 88-Not Attempted due to Medical Conditions or Safety Concerns. Bed Mobility: 6 Transfers (B,C,W/C): 6 Gait: 6 Stairs: 6 Indoor Mobility (Ambulation): Independent Stairs: Independent PT Evaluation-Current Subjective Patient states that he was walking a dog and it ran toward another dog and pulled him down. He immediately had pain. He had a (R) hip ORIF on 05/30/23. Pain Numeric Pain Scale: 0-No Pain Objective Patient Orientation: Person, Place, Time Attachments: SCD's, Edwards Catheter, IV Transfers Roll Left to Right (QC): 4 Sit to Lying (QC): 4 Lying to Sitting/Side of Bed(Q: 4 Sit to Stand (QC): 4 Gait Does the Patient Walk?: Yes Mode of Locomotion: Walk Anticipated Mode of Locomotion: Walk Walk 10 feet (QC): 5 Walk 50 ft with 2 Turns(QC): 88 Walk 150 ft (QC): 88 Walking 10ft/uneven surface-QC: 88 Distance: 20' Gait Assistive Device: FWW Balance Sitting Static: Normal Sitting Dynamic: Normal Standing Static: Fair Standing Dynamic: Fair Picking up an Object (QC): 88 Assessment/Needs 78 y.o. male with a diagnosis of s/p (R) hip ORIF. The patient has difficulty with functional mobility and weakness secondary to pain. He should do well with skilled therapy. Rehab Potential: Good PT Halfway Goals Food Mixer Assembler Goals PT Halfway Goals Time Frame: Jun 07, 2023 Roll Left & Right (QC): 6 Sit to Lying (QC): 6 Lying-Sitting on Side/Bed(QC): 6 Sit to Stand (QC): 6 Chair/Wid-vw-Jkmzq Xfer(QC): 6 Toilet Transfer (QC): 6 Car Transfer (QC): 6 Does the Patient Walk: Yes Walk 10 feet (QC): 6 Walk 50ft with 2 Turns (QC): 6 Walk 150 ft (QC): 6 Walking 10ft on Uneven Surface: 6 1 Step (curb) (QC): 6 4 Steps (QC): 6 12 Steps (QC): 6 Picking up an Object (QC): 6 PT Plan Problem List Problem List: Activity Tolerance, Functional Strength, Safety, Balance, Gait, Transfer, Bed Mobility, ROM Treatment/Plan Treatment Plan: Continue Plan of Care Treatment Plan: Bed Mobility, Functional Activity Lloyd, Functional Strength, Gait, Safety, Therapeutic Exercise, Transfers Treatment Duration: Jun 07, 2023 Frequency: 11 times per week Estimated Hrs Per Day: 1 hour per day Patient and/or Family Agrees t: Yes Time Time In: 0900 Time Out: 944 DATE: May 31, 2023 Total Billed Treatment Time: 45 Total Billed Treatment 1, EV Low complexity x 45' CHRISTO GUTIERREZ PT May 31, 2023 09:50
[2023-05-31 11:11] VITALS: BP 113/65
--- NOTE | 2023-05-31 16:23 | Progress Note - Hospitalist ---
Subjective HPI/CC On Admission Date Seen by Provider: May 31, 2023 Time Seen by Provider: 10:50 Subjective/Events-last exam He is doing well. He is having minimal pain. He has no complaints. Objective Exam Vital Signs Vital Signs Date Time Temp Pulse Resp B/P (MAP) Pulse Ox O2 Delivery O2 Flow Rate FiO2 05/31/23 12:48 93 05/31/23 11:11 36.3 18 113/65 (81) 93 Room Air 05/31/23 08:02 0.00 05/29/23 21:20 21 Capillary Refill : Less Than 3 SecondsLess Than 3 Seconds General Appearance: No Apparent Distress, WD/WN Respiratory: Lungs Clear, No Respiratory Distress Cardiovascular: Regular Rate, Rhythm, No Murmur Gastrointestinal: Normal Bowel Sounds, Soft Extremity: Normal Inspection, No Pedal Edema Neurologic/Psychiatric: Alert, Normal Mood/Affect Results/Procedures Lab Laboratory Tests 05/31/23 05:10 Patient resulted labs reviewed. Assessment/Plan Assessment and Plan Assess & Plan/Chief Complaint Right intertrochanteric femur fracture Ground level fall s/p surgical repair 05/30 PT/OT Pain regimen Acute postoperative anemia due to expected blood loss Hgb 10, slightly decreased ANNETTE on CKD 3a Creatinine improved Fluids stopped HTN HLD CAD GERD Losartan and Aspirin held Continue Lipitor, Metoprolol, Protonix DVT prophylaxis: Lovenox Diagnosis/Problems Diagnosis/Problems (1) Closed intertrochanteric fracture of right hip Status: Acute Qualifiers: Encounter type: initial encounter Fracture alignment: displaced Qualified Codes: S72.141A - Displaced intertrochanteric fracture of right femur, initial encounter for closed fracture (2) Fall from ground level Status: Acute (3) Acute kidney injury superimposed on chronic kidney disease Status: Acute (4) Stage 3a chronic kidney disease Status: Chronic (5) Acute postoperative anemia due to expected blood loss Status: Acute (6) HLD (hyperlipidemia) Status: Chronic (7) GERD (gastroesophageal reflux disease) Status: Chronic (8) CAD (coronary artery disease) Status: Chronic (9) HTN (hypertension) Status: Chronic Clinical Quality Measures DVT/VTE Risk/Contraindication: Contraindications-Pharm: Other *list below* Other: OR NU ESCALONA MD May 31, 2023 16:23
[2023-05-31 16:59] VITALS: BP 115/67
[2023-05-31 19:53] VITALS: BP 123/74
[2023-05-31] MEDS: HYDROmorphone INJECTION 2 MG/ML VIAL IV PRN (21:20)
[2023-05-31 23:12] VITALS: BP 114/63
[2023-06-01 03:22] VITALS: BP 118/66
[2023-06-01] MEDS: oxyCODONE IMMEDIATE RELEASE 5 MG TABLET PO PRN ×4 (03:30→21:57)
[2023-06-01] MEDS: inSUlin ASPART 1 UNIT/0.01 ML (PER UNIT) SC SCH ×4 (04:53→20:26)
[2023-06-01 05:47] LABS: BASOPHILS % (AUTO) 0 % (0-10); HEMATOCRIT 28 % (40-54); MEAN CORPUSCULAR VOLUME 99 fL (80-99)
[2023-06-01 05:49] LABS: EOSINOPHILS # (AUTO) 0.1 10^3/uL (0.0-0.3); EOSINOPHILS % (AUTO) 1 % (0-10); HEMOGLOBIN 9.2 g/dL (13.3-17.7); LYMPHOCYTES # (AUTO) 1.2 10^3/uL (1.0-4.0); LYMPHOCYTES % (AUTO) 15 % (12-44); MEAN CORPUSCULAR HEMOGLOBIN 33 pg (25-34); MEAN CORPUSCULAR HGB CONC 33 g/dL (32-36); MEAN PLATELET VOLUME 11.1 fL (9.0-12.2); MONOCYTES # (AUTO) 1.1 10^3/uL (0.0-1.0); MONOCYTES % (AUTO) 13 % (0-12); NEUTROPHILS # (AUTO) 5.9 10^3/uL (1.8-7.8); NEUTROPHILS % (AUTO) 71 % (42-75); PLATELET COUNT 113 10^3/uL (130-400); WHITE BLOOD COUNT 8.2 10^3/uL (4.3-11.0)
[2023-06-01 06:04] LABS: BILIRUBIN,TOTAL 0.7 MG/DL (0.1-1.0); CALCIUM 8.3 MG/DL (8.5-10.1); CREATININE SERUM 1.42 MG/DL (0.60-1.30); POTASSIUM 4.3 MMOL/L (3.6-5.0); TOTAL PROTEIN 5.1 GM/DL (6.4-8.2)
[2023-06-01 08:24] VITALS: BP 110/64
[2023-06-01] MEDS: DOCUSATE SODIUM 100 MG CAPSULE PO SCH ×2 (08:26→21:57)
[2023-06-01] MEDS: ENOXAPARIN 40 MG/0.4 ML SYRINGE SC SCH (08:27)
[2023-06-01] MEDS: SENNOSIDES 8.6 MG TABLET PO SCH ×2 (08:27→21:57)
[2023-06-01] MEDS: PANTOPRAZOLE 40 MG TABLET PO SCH (08:27)
--- NOTE | 2023-06-01 09:14 | Progress Note ---
Standard Progress Note Progress Notes/Assess & Plan Date Seen by a Provider: Jun 01, 2023 Time Seen by a Provider: 09:07 Progress/Assessment & Plan patient seen and examined consult dictated plan or OR this afternoon Final Diagnosis no complaints Vital Signs Date Time Temp Pulse Resp B/P (MAP) Pulse Ox O2 Delivery O2 Flow Rate FiO2 06/01/23 08:24 36.9 96 17 110/64 (79) 92 Room Air 06/01/23 07:00 82 06/01/23 03:22 36.9 90 18 118/66 (83) 94 Room Air 06/01/23 00:46 80 05/31/23 23:12 36.4 93 20 114/63 (80) 93 Room Air 05/31/23 19:56 Room Air 05/31/23 19:53 37.2 83 20 123/74 (90) 95 Room Air 05/31/23 19:00 95 05/31/23 16:59 37.2 89 22 115/67 (83) 96 Room Air 05/31/23 12:48 93 05/31/23 11:11 36.3 95 18 113/65 (81) 93 Room Air I & O 06/01/23 07:00 Intake Total 1970 ml Output Total 1095 ml Balance 875 ml Laboratory Tests Test 05/31/23 17:03 05/31/23 19:54 06/01/23 03:35 06/01/23 05:15 Range/Units Glucometer 104 109 108 70-110 MG/DL White Blood Count 8.2 4.3-11.0 10^3/uL Red Blood Count 2.81 L 4.30-5.52 10^6/uL Hemoglobin 9.2 L 13.3-17.7 g/dL Hematocrit 28 L 40-54 % Mean Corpuscular Volume 99 80-99 fL Mean Corpuscular Hemoglobin 33 25-34 pg Mean Corpuscular Hemoglobin Concent 33 32-36 g/dL Red Cell Distribution Width 14.3 10.0-14.5 % Platelet Count 113 L 130-400 10^3/uL Mean Platelet Volume 11.1 9.0-12.2 fL Immature Granulocyte % (Auto) 0 % Neutrophils (%) (Auto) 71 42-75 % Lymphocytes (%) (Auto) 15 12-44 % Monocytes (%) (Auto) 13 H 0-12 % Eosinophils (%) (Auto) 1 0-10 % Basophils (%) (Auto) 0 0-10 % Neutrophils # (Auto) 5.9 1.8-7.8 10^3/uL Lymphocytes # (Auto) 1.2 1.0-4.0 10^3/uL Monocytes # (Auto) 1.1 H 0.0-1.0 10^3/uL Eosinophils # (Auto) 0.1 0.0-0.3 10^3/uL Basophils # (Auto) 0.0 0.0-0.1 10^3/uL Immature Granulocyte # (Auto) 0.0 0.0-0.1 10^3/uL Percent Immature Platelet Fraction 3.9 0.0-7.6 % Sodium Level 140 135-145 MMOL/L Potassium Level 4.3 3.6-5.0 MMOL/L Chloride Level 108 H 98-107 MMOL/L Carbon Dioxide Level 24 21-32 MMOL/L Anion Gap 8 5-14 MMOL/L Blood Urea Nitrogen 30 H 7-18 MG/DL Creatinine 1.42 H 0.60-1.30 MG/DL Estimat Glomerular Filtration Rate 51 BUN/Creatinine Ratio 21 Glucose Level 107 H 70-105 MG/DL Calcium Level 8.3 L 8.5-10.1 MG/DL Corrected Calcium 9.1 8.5-10.1 MG/DL Total Bilirubin 0.7 0.1-1.0 MG/DL Aspartate Amino Transf (AST/SGOT) 38 H 5-34 U/L Alanine Aminotransferase (ALT/SGPT) 14 0-55 U/L Alkaline Phosphatase 63 40-136 U/L Total Protein 5.1 L 6.4-8.2 GM/DL Albumin 3.0 L 3.2-4.5 GM/DL right hip incisions clean and dry no calf tenderness neg Andrez's s/p R hip IM christiane PT DC Edwards possible DC home tomorrow ONEIDA ACEVES MD Jun 01, 2023 09:14
--- NOTE | 2023-06-01 10:14 | Physical Therapy Daily Note ---
PT Daily Note-Current Subjective Patient lying supine in bed upon PT arrival, agreeable to treatment. Patient rates pain in right hip at 3-4/10 currently and 8-10/10 with activity. Pain Section J - Health Conditions 1. Rarely or not at all 2. Occasionally 3. Frequently 4. Almost constantly 8. Unable to answer Pain Effect on Sleep: 1 Pain Interference with Therapy: 3 Pain Interference w/Day-to-Day: 3 Transfers SCALE: Activities may be completed with or without assistive devices. 4-Phubiojvdq-cczckjk completes the activity by him/herself with no assistance from a helper. 5-Set-up or Clean-up Assistance-helper sets up or cleans up; patient completes activity. [place] assists only prior to or following the activity. 4-Supervision or Touching Assistance-helper provides verbal cues and/or touching/steadying and/or contact guard assistance as patient completes activity. Assistance may be provided throughout the activity or intermittently. 3-Partial/Moderate Assistance-helper does LESS THAN HALF the effort. [place] lifts, holds or supports trunk or limbs, but provides less than half the effort. 2-Substantial/Maximal Assistance-helper does MORE THAN HALF the effort. [place] lifts or holds trunk or limbs and provides more than half the effort. 8-Nlbywnoqm-zjdgjo does ALL the effort. Patient does none of the effort to complete the activity. Or, the assistance of 2 or more helpers is required for the patient to complete the activity. If activity was not attempted, code reason: 7-Patient Refused. 9-Not Applicable-not attempted and the patient did not perform the activity before the current illness, exacerbation or injury. 10-Not Attempted due to Environmental Limitations-(lack of equipment, weather restraints, etc.). 88-Not Attempted due to Medical Conditions or Safety Concerns. Roll Left & Right (QC): 3 Sit to Lying (QC): 3 Lying to Sitting/Side of Bed(Q: 3 Sit to Stand (QC): 4 Chair/Gdj-uq-Txlnv Xfer(QC): 4 Weight Bearing Right Lower Extremity: Right Partial Weight Bearing Left Lower Extremity: Left Full Weight Bearing Gait Training Does the Patient Walk?: Yes Distance: 100' Walk 10 feet (QC): 5 Walk 50 ft with 2 Turns(QC): 4 Gait Assistive Device: FWW Exercises Supine Ex: Ankle pumps, Quad Set, Glut sets Supine Reps: 20 Assessment Current Status: Good Progress Patient tolerated treatment well. Requires min A for movement of right LE with bed mobility, however SBA for all other transfers. Patient ambulates 100 feet with FWW, with SBA/ CGA and verbal cues for safety, progression, posture and conservation of energy. Patient reports feeling light-headed on the return to the room. Patient was followed with chair however was able to go to this recliner. Patient in recliner post treatment with all needs met, nursing notified, call light in reach. PT Political Organizer Goals Political Organizer Goals PT Retirement Goals Time Frame: Jun 07, 2023 Roll Left & Right (QC): 6 Sit to Lying (QC): 6 Lying-Sitting on Side/Bed(QC): 6 Sit to Stand (QC): 6 Chair/Tux-xy-Ovczx Xfer(QC): 6 Toilet Transfer (QC): 6 Car Transfer (QC): 6 Does the Patient Walk: Yes Walk 10 feet (QC): 6 Walk 50ft with 2 Turns (QC): 6 Walk 150 ft (QC): 6 Walking 10ft on Uneven Surface: 6 1 Step (curb) (QC): 6 4 Steps (QC): 6 12 Steps (QC): 6 Picking up an Object (QC): 6 PT Plan Treatment/Plan Treatment Plan: Continue Plan of Care Treatment Plan: Bed Mobility, Functional Activity Lloyd, Functional Strength, Gait, Safety, Therapeutic Exercise, Transfers Treatment Duration: Jun 07, 2023 Frequency: 11 times per week Estimated Hrs Per Day: 1 hour per day Patient and/or Family Agrees t: Yes Safety Risks/Education Patient Education: Gait Training, Transfer Techniques Teaching Recipient: Patient Teaching Methods: Demonstration, Discussion Response to Teaching: Verbalize Understanding, Return Demonstration Time Time In: 925 Time Out: 958 DATE: Jun 01, 2023 Total Billed Treatment Time: 33 Total Billed Treatment Visit, Ex, GT LOGAN SPANGLER PT Jun 01, 2023 10:14
[2023-06-01 11:03] VITALS: BP 107/63
[2023-06-01 15:28] VITALS: BP 98/60
--- NOTE | 2023-06-01 15:57 | Progress Note - Hospitalist ---
Subjective HPI/CC On Admission Date Seen by Provider: Jun 01, 2023 Time Seen by Provider: 11:40 Subjective/Events-last exam He is doing well. He is having some hip pain. He has no other issues. Objective Exam Vital Signs Vital Signs Date Time Temp Pulse Resp B/P (MAP) Pulse Ox O2 Delivery O2 Flow Rate FiO2 06/01/23 15:28 37.0 87 22 98/60 (73) 91 Room Air 05/31/23 08:02 0.00 05/29/23 21:20 21 Capillary Refill : Less Than 3 SecondsLess Than 3 Seconds General Appearance: No Apparent Distress, WD/WN Respiratory: Lungs Clear, No Respiratory Distress Cardiovascular: Regular Rate, Rhythm, No Murmur Gastrointestinal: Normal Bowel Sounds, Soft Extremity: Normal Inspection, No Pedal Edema Neurologic/Psychiatric: Alert, Normal Mood/Affect Results/Procedures Lab Laboratory Tests 06/01/23 05:15 Patient resulted labs reviewed. Assessment/Plan Assessment and Plan Assess & Plan/Chief Complaint Right intertrochanteric femur fracture Ground level fall s/p surgical repair 05/30 PT/OT Pain regimen Acute postoperative anemia due to expected blood loss Hgb 9, slightly decreased ANNETTE on CKD 3a Creatinine relatively stable Fluids stopped HTN HLD CAD GERD Losartan and Aspirin held Continue Lipitor, Metoprolol, Protonix DVT prophylaxis: Lovenox Diagnosis/Problems Diagnosis/Problems (1) Closed intertrochanteric fracture of right hip Status: Acute Qualifiers: Encounter type: initial encounter Fracture alignment: displaced Qualified Codes: S72.141A - Displaced intertrochanteric fracture of right femur, initial encounter for closed fracture (2) Fall from ground level Status: Acute (3) Acute kidney injury superimposed on chronic kidney disease Status: Acute (4) Stage 3a chronic kidney disease Status: Chronic (5) Acute postoperative anemia due to expected blood loss Status: Acute (6) HLD (hyperlipidemia) Status: Chronic (7) GERD (gastroesophageal reflux disease) Status: Chronic (8) CAD (coronary artery disease) Status: Chronic (9) HTN (hypertension) Status: Chronic Clinical Quality Measures DVT/VTE Risk/Contraindication: Contraindications-Pharm: Other *list below* Other: OR NU ESCALONA MD Jun 01, 2023 15:57
[2023-06-01 19:35] VITALS: BP 101/57
[2023-06-01 23:17] VITALS: BP 98/59
[2023-06-02] VITALS (7 sets, daily range): BP systolic 110–135; BP diastolic 55–61
[2023-06-02] MEDS: inSUlin ASPART 1 UNIT/0.01 ML (PER UNIT) SC SCH ×4 (05:28→20:01)
[2023-06-02 05:33] LABS: EOSINOPHILS # (AUTO) 0.2 10^3/uL (0.0-0.3); MEAN CORPUSCULAR HGB CONC 33 g/dL (32-36)
[2023-06-02 05:34] LABS: BASOPHILS % (AUTO) 1 % (0-10); EOSINOPHILS % (AUTO) 2 % (0-10); HEMATOCRIT 28 % (40-54); HEMOGLOBIN 9.2 g/dL (13.3-17.7); LYMPHOCYTES # (AUTO) 1.1 10^3/uL (1.0-4.0); LYMPHOCYTES % (AUTO) 15 % (12-44); MEAN CORPUSCULAR HEMOGLOBIN 33 pg (25-34); MEAN CORPUSCULAR VOLUME 100 fL (80-99); MEAN PLATELET VOLUME 11.6 fL (9.0-12.2); MONOCYTES % (AUTO) 15 % (0-12); NEUTROPHILS # (AUTO) 4.8 10^3/uL (1.8-7.8); NEUTROPHILS % (AUTO) 67 % (42-75); PLATELET COUNT 104 10^3/uL (130-400); WHITE BLOOD COUNT 7.2 10^3/uL (4.3-11.0)
[2023-06-02 06:00] LABS: BILIRUBIN,TOTAL 0.8 MG/DL (0.1-1.0); CALCIUM 8.3 MG/DL (8.5-10.1); CREATININE SERUM 1.3 MG/DL (0.60-1.30); TOTAL PROTEIN 5.2 GM/DL (6.4-8.2)
--- NOTE | 2023-06-02 07:44 | Progress Note ---
Standard Progress Note Progress Notes/Assess & Plan Date Seen by a Provider: Jun 02, 2023 Time Seen by a Provider: 07:35 Progress/Assessment & Plan patient seen and examined consult dictated plan or OR this afternoon Final Diagnosis no complaints Laboratory Tests Test 06/01/23 10:55 06/01/23 15:30 06/01/23 20:22 06/02/23 04:55 Range/Units Glucometer 101 109 106 70-110 MG/DL White Blood Count 7.2 4.3-11.0 10^3/uL Red Blood Count 2.78 L 4.30-5.52 10^6/uL Hemoglobin 9.2 L 13.3-17.7 g/dL Hematocrit 28 L 40-54 % Mean Corpuscular Volume 100 H 80-99 fL Mean Corpuscular Hemoglobin 33 25-34 pg Mean Corpuscular Hemoglobin Concent 33 32-36 g/dL Red Cell Distribution Width 14.1 10.0-14.5 % Platelet Count 104 L 130-400 10^3/uL Mean Platelet Volume 11.6 9.0-12.2 fL Immature Granulocyte % (Auto) 0 % Neutrophils (%) (Auto) 67 42-75 % Lymphocytes (%) (Auto) 15 12-44 % Monocytes (%) (Auto) 15 H 0-12 % Eosinophils (%) (Auto) 2 0-10 % Basophils (%) (Auto) 1 0-10 % Neutrophils # (Auto) 4.8 1.8-7.8 10^3/uL Lymphocytes # (Auto) 1.1 1.0-4.0 10^3/uL Monocytes # (Auto) 1.0 0.0-1.0 10^3/uL Eosinophils # (Auto) 0.2 0.0-0.3 10^3/uL Basophils # (Auto) 0.0 0.0-0.1 10^3/uL Immature Granulocyte # (Auto) 0.0 0.0-0.1 10^3/uL Percent Immature Platelet Fraction 6.0 0.0-7.6 % Sodium Level 138 135-145 MMOL/L Potassium Level 4.0 3.6-5.0 MMOL/L Chloride Level 109 H 98-107 MMOL/L Carbon Dioxide Level 21 21-32 MMOL/L Anion Gap 8 5-14 MMOL/L Blood Urea Nitrogen 29 H 7-18 MG/DL Creatinine 1.30 0.60-1.30 MG/DL Estimat Glomerular Filtration Rate 57 BUN/Creatinine Ratio 22 Glucose Level 99 70-105 MG/DL Calcium Level 8.3 L 8.5-10.1 MG/DL Corrected Calcium 9.1 8.5-10.1 MG/DL Total Bilirubin 0.8 0.1-1.0 MG/DL Aspartate Amino Transf (AST/SGOT) 45 H 5-34 U/L Alanine Aminotransferase (ALT/SGPT) 20 0-55 U/L Alkaline Phosphatase 72 40-136 U/L Total Protein 5.2 L 6.4-8.2 GM/DL Albumin 3.0 L 3.2-4.5 GM/DL Test 06/02/23 05:21 Range/Units Glucometer 92 70-110 MG/DL RLE--dressings intact no calf tenderness neg Aime's s/p R hip IM christiane PT DC home tomorrow ONEIDA ACEVES MD Jun 02, 2023 07:44
--- NOTE | 2023-06-02 08:27 | Cardiology Progress Note ---
Subjective Date Seen by Provider: Jun 02, 2023 Time Seen by Provider: 08:15 Subjective/Events-last exam Patient is sitting up in chair, denies any chest pain or dyspnea. Objective-Cardiology Exam Last Set of Vital Signs Vital Signs 05/29/23 05/31/23 06/02/23 21:20 08:02 11:44 Temp 37.0 Pulse 78 Resp 18 B/P (MAP) 119/57 (77) Pulse Ox 96 O2 Delivery Room Air O2 Flow Rate 0.00 FiO2 21 I&O Intake and Output 06/02/23 00:00 Intake Total 980 ml Output Total 1375 ml Balance -395 ml Intake Oral 980 ml Output Urine Total 1375 ml # Bowel Movements 1 General: Alert, Oriented X3 HEENT: Atraumatic, PERRLA Lungs: Clear to Auscultation, Normal Air Movement Results Lab Laboratory Tests 06/02/23 04:55 A/P-Cardiology Admission Diagnosis right hip fx CAD HTN HLP Assessment/Plan Right hip fracture secondary to fall, s/p repair, Dr. Ryan managing. Coronary artery disease, cardiac catheterization done 12/20/20 showing severe long lesion in the LAD, complex intervention with deployment of 2 stents in the LAD, Oksana 2.75 x 33, followed by Oksana 2.5 x 38 expanded to 2.9mm proximally and 2.7 mm distally with excellent results. Repeat cardiac catheterization was done on December 22, the lesion appeared to be borderline, unable to evaluate FFR d/t position of the left main. Maintained on ASA Stress test done December 2022 showed no ischemia or infarct. History of PVCs/PACs, maintained on beta eryn, asymptomatic, continue to monitor. HTN, controlled, continue to monitor. Hyperlipidemia, well controlled, maintained on Lipitor, monitored as outpatient. ESPERANZA, bilateral mild nonobstructive disease per carotid duplex done February 2022. Supervisory-Addendum Brief Supervisory Addendum Participated in pt care: history, MDM, physical Personally performed: exam, history, MDM Care discussed with: MONE Results interpretation: Verified all documentation Notes: Patient was seen and evaluated with Rosie, examination performed, management plan was discussed, agree with the current scribed note, I made few changes to the note using Italic font Patient was seen at bedside, sitting comfortably Denied any chest pain Continue to monitor heart rate blood pressure ROSIE RODRIGUEZ Jun 02, 2023 08:27 DEB COLEMAN MD Jun 02, 2023 12:57
--- NOTE | 2023-06-02 09:05 | Physical Therapy Daily Note ---
PT Daily Note-Current Subjective Patient agrees to PT. Pain Numeric Pain Scale: 5-Moderate Pain Location: Right Location Body Site: Hip Pain Description: Acute Section J - Health Conditions 1. Rarely or not at all 2. Occasionally 3. Frequently 4. Almost constantly 8. Unable to answer Pain Effect on Sleep: 1 Pain Interference with Therapy: 1 Pain Interference w/Day-to-Day: 1 Transfers SCALE: Activities may be completed with or without assistive devices. 5-Fmryodnwpj-wsmbrjs completes the activity by him/herself with no assistance from a helper. 5-Set-up or Clean-up Assistance-helper sets up or cleans up; patient completes activity. [place] assists only prior to or following the activity. 4-Supervision or Touching Assistance-helper provides verbal cues and/or touching/steadying and/or contact guard assistance as patient completes activity. Assistance may be provided throughout the activity or intermittently. 3-Partial/Moderate Assistance-helper does LESS THAN HALF the effort. [place] lifts, holds or supports trunk or limbs, but provides less than half the effort. 2-Substantial/Maximal Assistance-helper does MORE THAN HALF the effort. [place] lifts or holds trunk or limbs and provides more than half the effort. 9-Ahpifuwlk-ndqftu does ALL the effort. Patient does none of the effort to complete the activity. Or, the assistance of 2 or more helpers is required for the patient to complete the activity. If activity was not attempted, code reason: 7-Patient Refused. 9-Not Applicable-not attempted and the patient did not perform the activity before the current illness, exacerbation or injury. 10-Not Attempted due to Environmental Limitations-(lack of equipment, weather restraints, etc.). 88-Not Attempted due to Medical Conditions or Safety Concerns. Lying to Sitting/Side of Bed(Q: 6 Sit to Stand (QC): 5 Chair/Oyw-ww-Weevl Xfer(QC): 5 Weight Bearing Right Lower Extremity: Right Partial Weight Bearing Left Lower Extremity: Left Full Weight Bearing Gait Training Distance: 225' Walk 10 feet (QC): 5 Walk 50 ft with 2 Turns(QC): 5 Walk 150 ft (QC): 5 Gait Assistive Device: FWW patient able to maintain PWB right LE Exercises Supine Ex: Ankle pumps, Quad Set, Heel Slides Supine Reps: 15 Seated Therapy Exercises: Long arc quads Seated Reps: 15 Assessment Patient progressing with treatment plan and has been instructed to be up ad vasiliy in room and hallway. RN notified. PT [facility] Goals [facility] Goals PT Tile Professional Goals Time Frame: Jun 07, 2023 Roll Left & Right (QC): 6 Sit to Lying (QC): 6 Lying-Sitting on Side/Bed(QC): 6 Sit to Stand (QC): 6 Chair/Fjk-kn-Hoakq Xfer(QC): 6 Toilet Transfer (QC): 6 Car Transfer (QC): 6 Does the Patient Walk: Yes Walk 10 feet (QC): 6 Walk 50ft with 2 Turns (QC): 6 Walk 150 ft (QC): 6 Walking 10ft on Uneven Surface: 6 1 Step (curb) (QC): 6 4 Steps (QC): 6 12 Steps (QC): 6 Picking up an Object (QC): 6 PT Plan Treatment/Plan Treatment Plan: Continue Plan of Care Treatment Plan: Bed Mobility, Functional Activity Lloyd, Functional Strength, Gait, Safety, Therapeutic Exercise, Transfers Treatment Duration: Jun 07, 2023 Frequency: 11 times per week Estimated Hrs Per Day: 1 hour per day Patient and/or Family Agrees t: Yes Time Time In: 730 Time Out: 754 DATE: Jun 02, 2023 Total Billed Treatment Time: 24 Total Billed Treatment 1 visit EX 13 min GT 11 min JONY BAE PT Jun 02, 2023 09:05
[2023-06-02] MEDS: PANTOPRAZOLE 40 MG TABLET PO SCH (09:10)
[2023-06-02] MEDS: ENOXAPARIN 40 MG/0.4 ML SYRINGE SC SCH (09:11)
[2023-06-02] MEDS: SENNOSIDES 8.6 MG TABLET PO SCH ×2 (09:11→20:21)
[2023-06-02] MEDS: DOCUSATE SODIUM 100 MG CAPSULE PO SCH ×2 (09:11→20:21)
[2023-06-02] MEDS: oxyCODONE IMMEDIATE RELEASE 5 MG TABLET PO PRN ×3 (09:15→20:17)
--- NOTE | 2023-06-02 11:13 | Progress Note ---
EDOUARD DAVEY 06/02/23 1113: Subjective Date Seen by a Provider: Jun 02, 2023 Time Seen by a Provider: 09:15 Subjective/Events-last exam Pt had surgery on 05/30 to repair right intertrochanteric femur fracture that went well without complication. Physical therapy saw pt on 06/01 and pt was able to walk 100ft with supervision/minimal assistance. Today, pt is able to use restroom by himself and tolerated walking down hospital hallway a couple of times. He rates the pain as 2-3/10 while sitting and 7-8/10 while walking. Pt saw cardio this morning and reported no cardio concerns. He had a BM early this morning, has no signs/symptoms of post-op infection or DVT, and has no new co ncerns. Review of Systems General: No Chills, No Fatigue Pulmonary: No Dyspnea Cardiovascular: No: Chest Pain, Palpitations Gastrointestinal: No: Nausea, Vomiting, Diarrhea, Constipation Genitourinary: No Dysuria Objective Exam Last Set of Vital Signs Vital Signs Date Time Temp Pulse Resp B/P (MAP) Pulse Ox O2 Delivery O2 Flow Rate FiO2 06/02/23 08:00 Room Air 06/02/23 07:36 36.8 75 93 06/02/23 07:25 14 115/55 (75) 05/31/23 08:02 0.00 05/29/23 21:20 21 Capillary Refill : Less Than 3 SecondsLess Than 3 Seconds I&O Intake and Output 06/02/23 00:00 Intake Total 980 ml Output Total 1375 ml Balance -395 ml Intake Oral 980 ml Output Urine Total 1375 ml # Bowel Movements 1 General: Alert, Oriented X3, Cooperative, No Acute Distress HEENT: Atraumatic Lungs: Clear to Auscultation, Normal Air Movement Heart: Regular Rate, Normal S1, Normal S2, No Murmurs Extremities: No Clubbing, No Cyanosis, No Edema Skin: No Rashes, No Significant Lesion Psych/Mental Status: Mental Status NL, Mood NL Results Lab Laboratory Tests 06/01/23 15:30: Glucometer 109 06/01/23 20:22: Glucometer 106 06/02/23 04:55: White Blood Count 7.2, Red Blood Count 2.78L, Hemoglobin 9.2L, Hematocrit 28L, Mean Corpuscular Volume 100H, Mean Corpuscular Hemoglobin 33, Mean Corpuscular Hemoglobin Concent 33, Red Cell Distribution Width 14.1, Platelet Count 104L, Mean Platelet Volume 11.6, Immature Granulocyte % (Auto) 0, Neutrophils (%) (Auto) 67, Lymphocytes (%) (Auto) 15, Monocytes (%) (Auto) 15H, Eosinophils (%) (Auto) 2, Basophils (%) (Auto) 1, Neutrophils # (Auto) 4.8, Lymphocytes # (Auto) 1.1, Monocytes # (Auto) 1.0, Eosinophils # (Auto) 0.2, Basophils # (Auto) 0.0, Immature Granulocyte # (Auto) 0.0, Percent Immature Platelet Fraction 6.0, Sodium Level 138, Potassium Level 4.0, Chloride Level 109H, Carbon Dioxide Level 21, Anion Gap 8, Blood Urea Nitrogen 29H, Creatinine 1.30, Estimat Glomerular Filtration Rate 57, BUN/Creatinine Ratio 22, Glucose Level 99, Calcium Level 8.3L, Corrected Calcium 9.1, Total Bilirubin 0.8, Aspartate Amino Transf (AST/SGOT) 45H, Alanine Aminotransferase (ALT/SGPT) 20, Alkaline Phosphatase 72, Total Protein 5.2L, Albumin 3.0L 06/02/23 05:21: Glucometer 92 Microbiology 05/30/23 MRSA Screen - Final, Complete MRSA not isolated Assessment/Plan Assessment/Plan Assess & Plan/Chief Complaint Assessment 1. Right Intertrochanteric Femur Fracture 2. CKD 3. Mild Anemia Plan 1. Pain Control Management 2. DVT Prophylaxis 3. Monitor Hgb 4. PT/OT Clinical Quality Measures Admission Status Admission Dx Assessment 1. Mildly Displaced Right Intertrochanteric Femur Fracture 2. ANNETTE Plan 1 Ortho Consult and Surgery 2. Pain control management 3. IV Fluids PRN Surgical benefits outweigh risks. It would be prudent to proceed with surgery. DVT/VTE Risk/Contraindication: Contraindications-Pharm: Other *list below* Other: OR RAEANN VELÁZQUEZ DO 06/02/231944: Subjective Subjective/Events-last exam Patient doing really well patient wants to go home tomorrow Review of Systems Musculoskeletal: leg pain Objective Exam General: Alert, Oriented X3, Cooperative, No Acute Distress Lungs: Clear to Auscultation, Normal Air Movement Heart: Regular Rate, Normal S1, Normal S2, No Murmurs Psych/Mental Status: Mental Status NL, Mood NL Assessment/Plan Assessment/Plan Assess & Plan/Chief Complaint Discharge home tomorrow Supervisory-Addendum Brief Verification & Attestation Participated in pt care: history, MDM, physical Personally performed: exam, history, MDM, supervision of care Care discussed with: Medical Student Procedures: n/a Results interpretation: Verified all documentation Verification and Attestation of Medical Student E/M Service A medical student performed and documented this service in my presence. I reviewed and verified all information documented by the medical student and made modifications to such information, when appropriate. I personally performed the physical exam and medical decision making. Raeann Velázquez, Jun 02, 2023,19:45 EDOUARD DAVEY Jun 02, 2023 11:13 RAEANN VELÁZQUEZ DO Jun 02, 2023 19:45
--- NOTE | 2023-06-02 12:47 | Anesthesia-General Post-Op ---
General Significant Intra-Op Events Notes late entry 05/31/23@ 0900 Patient Condition Mental Status/LOC: Same as Preop Cardiovascular: Satisfactory Nausea/Vomiting: Absent Respiratory: Satisfactory Pain: Controlled Complications: Absent Post Op Complications Complications None Follow Up Care/Instructions Patient Instructions None needed. Anesthesia/Patient Condition Patient Condition Patient is doing well, no complaints, stable vital signs, no apparent adverse anesthesia problems. No complications reported per nursing. CHACE GUILLEN CRNA Jun 02, 2023 12:47
--- NOTE | 2023-06-02 14:20 | Physical Therapy Daily Note ---
PT Daily Note-Current Subjective Patient agrees to PT. Pain Numeric Pain Scale: 8 Location: Right Location Body Site: Hip Pain Description: Heavy Section J - Health Conditions 1. Rarely or not at all 2. Occasionally 3. Frequently 4. Almost constantly 8. Unable to answer Pain Effect on Sleep: 1 Pain Interference with Therapy: 1 Pain Interference w/Day-to-Day: 1 Transfers SCALE: Activities may be completed with or without assistive devices. 1-Sakadakyvz-phhwems completes the activity by him/herself with no assistance from a helper. 5-Set-up or Clean-up Assistance-helper sets up or cleans up; patient completes activity. [place] assists only prior to or following the activity. 4-Supervision or Touching Assistance-helper provides verbal cues and/or touching/steadying and/or contact guard assistance as patient completes activity. Assistance may be provided throughout the activity or intermittently. 3-Partial/Moderate Assistance-helper does LESS THAN HALF the effort. [place] lifts, holds or supports trunk or limbs, but provides less than half the effort. 2-Substantial/Maximal Assistance-helper does MORE THAN HALF the effort. [place] lifts or holds trunk or limbs and provides more than half the effort. 5-Zaffqpdwd-uhivci does ALL the effort. Patient does none of the effort to complete the activity. Or, the assistance of 2 or more helpers is required for the patient to complete the activity. If activity was not attempted, code reason: 7-Patient Refused. 9-Not Applicable-not attempted and the patient did not perform the activity before the current illness, exacerbation or injury. 10-Not Attempted due to Environmental Limitations-(lack of equipment, weather restraints, etc.). 88-Not Attempted due to Medical Conditions or Safety Concerns. Sit to Lying (QC): 4 Lying to Sitting/Side of Bed(Q: 4 Sit to Stand (QC): 4 Weight Bearing Right Lower Extremity: Right Partial Weight Bearing Left Lower Extremity: Left Full Weight Bearing Gait Training Distance: 150' Walk 10 feet (QC): 4 Walk 50 ft with 2 Turns(QC): 4 Walk 150 ft (QC): 4 Gait Assistive Device: FWW slow, step to, antalgic PWB right LE Exercises Seated Therapy Exercises: Ankle pumps, Long arc quads Seated Reps: 15 Assessment Patient tolerated treatment and returned to bed with needs met. Noted increase in c/o right hip pain this p.m. with meds issued after session. PT Regulatory Compliance Officer Goals Regulatory Compliance Officer Goals PT Group Home Goals Time Frame: Jun 07, 2023 Roll Left & Right (QC): 6 Sit to Lying (QC): 6 Lying-Sitting on Side/Bed(QC): 6 Sit to Stand (QC): 6 Chair/Uib-wp-Utwxz Xfer(QC): 6 Toilet Transfer (QC): 6 Car Transfer (QC): 6 Does the Patient Walk: Yes Walk 10 feet (QC): 6 Walk 50ft with 2 Turns (QC): 6 Walk 150 ft (QC): 6 Walking 10ft on Uneven Surface: 6 1 Step (curb) (QC): 6 4 Steps (QC): 6 12 Steps (QC): 6 Picking up an Object (QC): 6 PT Plan Treatment/Plan Treatment Plan: Continue Plan of Care Treatment Plan: Bed Mobility, Functional Activity Lloyd, Functional Strength, Gait, Safety, Therapeutic Exercise, Transfers Treatment Duration: Jun 07, 2023 Frequency: 11 times per week Estimated Hrs Per Day: 1 hour per day Patient and/or Family Agrees t: Yes Time Time In: 1331 Time Out: 1346 DATE: Jun 02, 2023 Total Billed Treatment Time: 15 Total Billed Treatment 1 visit FA 15 min JONY BAE PT Jun 02, 2023 14:20
[2023-06-03] MEDS ORDERED: SENN-234 PO (04:59)
[2023-06-03] MEDS ORDERED: OXC5T PO (04:59)
--- NOTE | 2023-06-03 05:01 | D/C HH Face to Face Order ---
D/C Face to Face Orders Reconcile Patient Problems Problems Reviewed?: Yes Instructions for Patient Via [facility], Patient Instructions/FollowUp: pcp 1 week Physician to follow Patient: pcp Discharge Diet for Home: No Restrictions Patient Problems: hip fx Patient Data-Allergies,Ht & Wt Patient Allergies: Coded Allergies: No Known Drug Allergies (Verified , 04/06/09) Home Health Need/Face to Face Date of Face to Face: Jun 03, 2023 Clinical Findings: Generalized weakness and fatigue, Instability, Muscle weakness, Pain with ambulation, Unsteady gait I have seen Pt [id number]: Yes Discharged To: Home Diagnosis/Conditions: hip fx Patient is Homebound due to: [place] fall risk due to instabilty, Muscle weakness, Pain w/ambulation Homebound Status Due to the above stated illness, injury or surgical procedure (medical condition or diagnosis) and associated clinical findings, the patient is homebound because of his/her inability to leave home except with aid of a supportive device and/or person AND leaving the home requires a considerable and taxing effort or is medically contraindicated. Pt req the following assistanc: Walker Home Health Nursing Orders Home Health Services Order: Nursing Services, Health And Safety Tech-Evaluate & Treat, Physical Therapy-Evaluate & Treat Home Health Infusion Therapy Line Start Date: May 29, 2023 Certify Stmt I certify that this patient is under my care and that I, a nurse practitioner or a physician; a retail administrative assistant working with me, had a face to face encounter that - meets the physician face to face encounter requirements with this patient as dated. MARIO PENDLETON DO Jun 03, 2023 05:01
--- NOTE | 2023-06-03 05:02 | Discharge Summary ---
Diagnosis/Chief Complaint Date of Admission May 29, 2023 at 20:27 Date of Discharge Discharge Date: Jun 03, 2023 Discharge Diagnosis Assessment 1. Mildly Displaced Right Intertrochanteric Femur Fracture 2. ANNETTE 3.CAD Reason Hospital Visit Chief complaint: Right hip fracture HPI: This is a 78-year-old male Clinic patient of Dr López who presented following a fall at home when he was walking his neighbors dogs. Currently he is ready for surgery. Echocardiogram will be obtained and cardiology consultation due to history of CAD.. Discharge Summary Discharge Physical Examination Allergies: Coded Allergies: No Known Drug Allergies (Verified , 04/06/09) Vitals & I&Os Vital Signs Date Time Temp Pulse Resp B/P (MAP) Pulse Ox O2 Delivery O2 Flow Rate FiO2 06/03/23 09:50 95 Room Air 06/03/23 07:31 36.2 83 18 129/61 (83) 05/31/23 08:02 0.00 05/29/23 21:20 21 General Appearance: Alert, Oriented X3, Cooperative Respiratory: Clear to Auscultation Cardiovascular: Regular Rate Psych/Mental Status: Mental Status NL Hospital Course Was the Problem List Reviewed?: Yes Hospital course: Patient had an uneventful hospital course after he was admitted for a right hip fracture sustained in a fall while walking his neighbors dogs. Patient underwent uncomplicated surgery. Patient worked hard in therapy and regain back to baseline function. Home meds were restarted. Overall he did well and he was sent home did not require inpatient rehab but I did order home health Labs (last 24 hrs) Laboratory Tests 05/29/23 19:15: White Blood Count 5.0, Red Blood Count 4.06L, Hemoglobin 13.3, Hematocrit 41, Mean Corpuscular Volume 101H, Mean Corpuscular Hemoglobin 33, Mean Corpuscular Hemoglobin Concent 33, Red Cell Distribution Width 13.8, Platelet Count 156, Mean Platelet Volume 10.9, Immature Granulocyte % (Auto) 0, Neutrophils (%) (Auto) 58, Lymphocytes (%) (Auto) 22, Monocytes (%) (Auto) 11, Eosinophils (%) (Auto) 8, Basophils (%) (Auto) 1, Neutrophils # (Auto) 2.9, Lymphocytes # (Auto) 1.1, Monocytes # (Auto) 0.5, Eosinophils # (Auto) 0.4H, Basophils # (Auto) 0.0, Immature Granulocyte # (Auto) 0.0, Prothrombin Time 13.4, INR Comment 1.0, Activated Partial Thromboplast Time 28, Sodium Level 143, Potassium Level 4.7, C hloride Level 111H, Carbon Dioxide Level 25, Anion Gap 7, Blood Urea Nitrogen 31H, Creatinine 1.89H, Estimat Glomerular Filtration Rate 36, BUN/Creatinine Ratio 16, Glucose Level 124H, Calcium Level 9.3, Corrected Calcium 9.5, Total Bilirubin 0.9, Aspartate Amino Transf (AST/SGOT) 36H, Alanine Aminotransferase (ALT/SGPT) 31, Alkaline Phosphatase 89, Total Protein 6.2L, Albumin 3.8 05/30/23 05:46: White Blood Count 7.4, Red Blood Count 3.85L, Hemoglobin 12.6L, Hematocrit 38L, Mean Corpuscular Volume 98, Mean Corpuscular Hemoglobin 33, Mean Corpuscular Hemoglobin Concent 33, Red Cell Distribution Width 13.8, Platelet Count 128L, Mean Platelet Volume 11.2, Immature Granulocyte % (Auto) 0, Neutrophils (%) (Auto) 68, Lymphocytes (%) (Auto) 18, Monocytes (%) (Auto) 11, Eosinophils (%) (Auto) 2, Basophils (%) (Auto) 0, Neutrophils # (Auto) 5.0, Lymphocytes # (Auto) 1.4, Monocytes # (Auto) 0.8, Eosinophils # (Auto) 0.2, Basophils # (Auto) 0.0, Immature Granulocyte # (Auto) 0.0, Sodium Level 143, Potassium Level 4.1, Chloride Level 112H, Carbon Dioxide Level 20L, Anion Gap 11, Blood Urea Nitrogen 27H, Creatinine 1.46H, Estimat Glomerular Filtration Rate 49, BUN/Creatinine Ratio 18, Glucose Level 96, Calcium Level 8.8, Corrected Calcium 9.3, Total Bilirubin 0.9, Aspartate Amino Transf (AST/SGOT) 33, Alanine Aminotransferase (ALT/SGPT) 26, Alkaline Phosphatase 86, Total Protein 5.8L, Albumin 3.4, Percent Immature Platelet Fraction 3.6 05/30/23 11:29: Glucometer 88 05/30/23 15:48: Glucometer 98 05/30/23 20:05: Glucometer 143H 05/31/23 04:40: Glucometer 127H 05/31/23 05:10: White Blood Count 9.8, Red Blood Count 3.24L, Hemoglobin 10.8L, Hematocrit 32L, Mean Corpuscular Volume 98, Mean Corpuscular Hemoglobin 33, Mean Corpuscular Hemoglobin Concent 34, Red Cell Distribution Width 13.9, Platelet Count 137, Mean Platelet Volume 11.1, Immature Granulocyte % (Auto) 0, Neutrophils (%) (Auto) 83H, Lymphocytes (%) (Auto) 6L, Monocytes (%) (Auto) 10, Eosinophils (%) (Auto) 0, Basophils (%) (Auto) 0, Neutrophils # (Auto) 8.1H, Lymphocytes # (Auto) 0.6L, Monocytes # (Auto) 1.0, Eosinophils # (Auto) 0.0, Basophils # (Auto) 0.0, Immature Granulocyte # (Auto) 0.0, Neutrophils % (Manual) 91, Lymphocytes % (Manual) 3, Monocytes % (Manual) 6, Percent Immature Platelet Fraction 3.5, Blood Morphology Comment NORMAL, Sodium Level 140, Potassium Level 4.5, Chloride Level 109H, Carbon Dioxide Level 22, Anion Gap 9, Blood Urea Nitrogen 25H, Creatinine 1.36H, Estimat Glomerular Filtration Rate 54, BUN/Creatinine Ratio 18, Glucose Level 135H, Calcium Level 8.3L, Corrected Calcium 9.0, Total Bilirubin 1.0, Aspartate Amino Transf (AST/SGOT) 26, Alanine Aminotransferase (ALT/SGPT) 20, Alkaline Phosphatase 70, Total Protein 5.1L, Albumin 3.1L 05/31/23 17:03: Glucometer 104 05/31/23 19:54: Glucometer 109 06/01/23 03:35: Glucometer 108 06/01/23 05:15: White Blood Count 8.2, Red Blood Count 2.81L, Hemoglobin 9.2L, Hematocrit 28L, Mean Corpuscular Volume 99, Mean Corpuscular Hemoglobin 33, Mean Corpuscular Hemoglobin Concent 33, Red Cell Distribution Width 14.3, Platelet Count 113L, Mean Platelet Volume 11.1, Immature Granulocyte % (Auto) 0, Neutrophils (%) (Auto) 71, Lymphocytes (%) (Auto) 15, Monocytes (%) (Auto) 13H, Eosinophils (%) (Auto) 1, Basophils (%) (Auto) 0, Neutrophils # (Auto) 5.9, Lymphocytes # (Auto) 1.2, Monocytes # (Auto) 1.1H, Eosinophils # (Auto) 0.1, Basophils # (Auto) 0.0, Immature Granulocyte # (Auto) 0.0, Percent Immature Platelet Fraction 3.9, Sod ium Level 140, Potassium Level 4.3, Chloride Level 108H, Carbon Dioxide Level 24, Anion Gap 8, Blood Urea Nitrogen 30H, Creatinine 1.42H, Estimat Glomerular Filtration Rate 51, BUN/Creatinine Ratio 21, Glucose Level 107H, Calcium Level 8.3L, Corrected Calcium 9.1, Total Bilirubin 0.7, Aspartate Amino Transf (AST/SGOT) 38H, Alanine Aminotransferase (ALT/SGPT) 14, Alkaline Phosphatase 63, Total Protein 5.1L, Albumin 3.0L 06/01/23 10:55: Glucometer 101 06/01/23 15:30: Glucometer 109 06/01/23 20:22: Glucometer 106 06/02/23 04:55: White Blood Count 7.2, Red Blood Count 2.78L, Hemoglobin 9.2L, Hematocrit 28L, Mean Corpuscular Volume 100H, Mean Corpuscular Hemoglobin 33, Mean Corpuscular Hemoglobin Concent 33, Red Cell Distribution Width 14.1, Platelet Count 104L, Mean Platelet Volume 11.6, Immature Granulocyte % (Auto) 0, Neutrophils (%) (Auto) 67, Lymphocytes (%) (Auto) 15, Monocytes (%) (Auto) 15H, Eosinophils (%) (Auto) 2, Basophils (%) (Auto) 1, Neutrophils # (Auto) 4.8, Lymphocytes # (Auto) 1.1, Monocytes # (Auto) 1.0, Eosinophils # (Auto) 0.2, Basophils # (Auto) 0.0, Immature Granulocyte # (Auto) 0.0, Percent Immature Platelet Fraction 6.0, Sodium Level 138, Potassium Level 4.0, Chloride Level 109H, Carbon Dioxide Level 21, Anion Gap 8, Blood Urea Nitrogen 29H, Creatinine 1.30, Estimat Glomerular Filtration Rate 57, BUN/Creatinine Ratio 22, Glucose Level 99, Calcium Level 8.3L, Corrected Calcium 9.1, Total Bilirubin 0.8, Aspartate Amino Transf (AST/SGOT) 45H, Alanine Aminotransferase (ALT/SGPT) 20, Alkaline Phosphatase 72, Total Protein 5.2L, Albumin 3.0L 06/02/23 05:21: Glucometer 92 06/02/23 11:44: Glucometer 93 06/02/23 15:47: Glucometer 105 06/02/23 19:19: Glucometer 121H 06/03/23 04:55: White Blood Count 5.7, Red Blood Count 2.45L, Hemoglobin 8.2L, Hematocrit 24L, Mean Corpuscular Volume 98, Mean Corpuscular Hemoglobin 34, Mean Corpuscular Hemoglobin Concent 34, Red Cell Distribution Width 14.0, Platelet Count 128L, Mean Platelet Volume 11.2, Immature Granulocyte % (Auto) 0, Neutrophils (%) (Auto) 64, Lymphocytes (%) (Auto) 16, Monocytes (%) (Auto) 15H, Eosinophils (%) (Auto) 4, Basophils (%) (Auto) 0, Neutrophils # (Auto) 3.7, Lymphocytes # (Auto) 0.9L, Monocytes # (Auto) 0.9, Eosinophils # (Auto) 0.2, Basophils # (Auto) 0.0, Immature Granulocyte # (Auto) 0.0, Percent Immature Platelet Fraction 3.8, Sodium Level 138, Potassium Level 3.8, Chloride Level 108H, Carbon Dioxide Level 23, Anion Gap 7, Blood Urea Nitrogen 28H, Creatinine 1.25, Estimat Glomerular Filtration Rate 59, BUN/Creatinine Ratio 22, Glucose Level 110H, Calcium Level 8.3L, Corrected Calcium 9.2, Total Bilirubin 1.0, Aspartate Amino Transf (AST/SGOT) 50H, Alanine Aminotransferase (ALT/SGPT) 29, Alkaline Phosphatase 80, Total Protein 5.1L, Albumin 2.9L 06/03/23 05:03: Glucometer 101 06/03/23 11:21: Glucometer 118H Microbiology 05/30/23 MRSA Screen - Final, Complete MRSA not isolated Pending Labs Microbiology Date/Time Source Procedure Growth Status 05/30/23 10:12 Nasal MRSA Screen - Final MRSA not isolated Complete Laboratory Tests 05/29/23 19:15: White Blood Count 5.0, Red Blood Count 4.06, Hemoglobin 13.3, Hematocrit 41, Mean Corpuscular Volume 101, Mean Corpuscular Hemoglobin 33, Mean Corpuscular Hemoglobin Concent 33, Red Cell Distribution Width 13.8, Platelet Count 156, Mean Platelet Volume 10.9, Immature Granulocyte % (Auto) 0, Neutrophils (%) (Auto) 58, Lymphocytes (%) (Auto) 22, Monocytes (%) (Auto) 11, Eosinophils (%) (Auto) 8, Basophils (%) (Auto) 1, Neutrophils # (Auto) 2.9, Lymphocytes # (Auto) 1.1, Monocytes # (Auto) 0.5, Eosinophils # (Auto) 0.4, Basophils # (Auto) 0.0, Immature Granulocyte # (Auto) 0.0, Prothrombin Time 13.4, INR Comment 1.0, Activated Partial Thromboplast Time 28, Sodium Level 143, Potassium Level 4.7, Chloride Level 111, Carbon Dioxide Level 25, Anion Gap 7, Blood Urea Nitrogen 31, Creatinine 1.89, Estimat Glomerular Filtration Rate 36, BUN/Creatinine Ratio 16, Glucose Level 124, Calcium Level 9.3, Corrected Calcium 9.5, Total Bilirubin 0.9, Aspartate Amino Transf (AST/SGOT) 36, Alanine Aminotransferase (ALT/SGPT) 31, Alkaline Phosphatase 89, Total Protein 6.2, Albumin 3.8 05/30/23 05:46: White Blood Count 7.4, Red Blood Count 3.85, Hemoglobin 12.6, Hematocrit 38, Mean Corpuscular Volume 98, Mean Corpuscular Hemoglobin 33, Mean Corpuscular Hemoglobin Concent 33, Red Cell Distribution Width 13.8, Platelet Count 128, Mean Platelet Volume 11.2, Immature Granulocyte % (Auto) 0, Neutrophils (%) (Auto) 68, Lymphocytes (%) (Auto) 18, Monocytes (%) (Auto) 11, Eosinophils (%) (Auto) 2, Basophils (%) (Auto) 0, Neutrophils # (Auto) 5.0, Lymphocytes # (Auto) 1.4, Monocytes # (Auto) 0.8, Eosinophils # (Auto) 0.2, Basophils # (Auto) 0.0, Immature Granulocyte # (Auto) 0.0, Sodium Level 143, Potassium Level 4.1, Chloride Level 112, Carbon Dioxide Level 20, Anion Gap 11, Blood Urea Nitrogen 27, Creatinine 1.46, Estimat Glomerular Filtration Rate 49, BUN/Creatinine Ratio 18, Glucose Level 96, Calcium Level 8.8, Corrected Calcium 9.3, Total Bilirubin 0.9, Aspartate Amino Transf (AST/SGOT) 33, Alanine Aminotransferase (ALT/SGPT) 26, Alkaline Phosphatase 86, Total Protein 5.8, Albumin 3.4, Percent Immature Platelet Fraction 3.6 05/30/23 11:29: Glucometer 88 05/30/23 15:48: Glucometer 98 05/30/23 20:05: Glucometer 143 05/31/23 04:40: Glucometer 127 05/31/23 05:10: White Blood Count 9.8, Red Blood Count 3.24, Hemoglobin 10.8, Hematocrit 32, Mean Corpuscular Volume 98, Mean Corpuscular Hemoglobin 33, Mean Corpuscular Hemoglobin Concent 34, Red Cell Distribution Width 13.9, Platelet Count 137, Mean Platelet Volume 11.1, Immature Granulocyte % (Auto) 0, Neutrophils (%) (Auto) 83, Lymphocytes (%) (Auto) 6, Monocytes (%) (Auto) 10, Eosinophils (%) (Auto) 0, Basophils (%) (Auto) 0, Neutrophils # (Auto) 8.1, Lymphocytes # (Auto) 0.6, Monocytes # (Auto) 1.0, Eosinophils # (Auto) 0.0, Basophils # (Auto) 0.0, Immature Granulocyte # (Auto) 0.0, Neutrophils % (Manual) 91, Lymphocytes % (Manual) 3, Monocytes % (Manual) 6, Percent Immature Platelet Fraction 3.5, Blood Morphology Comment NORMAL, Sodium Level 140, Potassium Level 4.5, Chloride Level 109, Carbon Dioxide Level 22, Anion Gap 9, Blood Urea Nitrogen 25, Creatinine 1.36, Estimat Glomerular Filtration Rate 54, BUN/Creatinine Ratio 18, Glucose Level 135, Calcium Level 8.3, Corrected Calcium 9.0, Total Bilirubin 1.0, Aspartate Amino Transf (AST/SGOT) 26, Alanine Aminotransferase (ALT/SGPT) 20, Alkaline Phosphatase 70, Total Protein 5.1, Albumin 3.1 05/31/23 17:03: Glucometer 104 05/31/23 19:54: Glucometer 109 06/01/23 03:35: Glucometer 108 06/01/23 05:15: White Blood Count 8.2, Red Blood Count 2.81, Hemoglobin 9.2, Hematocrit 28, Mean Corpuscular Volume 99, Mean Corpuscular Hemoglobin 33, Mean Corpuscular Hemoglobin Concent 33, Red Cell Distribution Width 14.3, Platelet Count 113, Mean Platelet Volume 11.1, Immature Granulocyte % (Auto) 0, Neutrophils (%) (Auto) 71, Lymphocytes (%) (Auto) 15, Monocytes (%) (Auto) 13, Eosinophils (%) (Auto) 1, Basophils (%) (Auto) 0, Neutrophils # (Auto) 5.9, Lymphocytes # (Auto) 1.2, Monocytes # (Auto) 1.1, Eosinophils # (Auto) 0.1, Basophils # (Auto) 0.0, Immature Granulocyte # (Auto) 0.0, Percent Immature Platelet Fraction 3.9, Sodium Level 140, Potassium Level 4.3, Chloride Level 108, Carbon Dioxide Level 24, Anion Gap 8, Blood Urea Nitrogen 30, Creatinine 1.42, Estimat Glomerular Filtration Rate 51, BUN/Creatinine Ratio 21, Glucose Level 107, Calcium Level 8.3, Corrected Calcium 9.1, Total Bilirubin 0.7, Aspartate Amino Transf (AST/SGOT) 38, Alanine Aminotransferase (ALT/SGPT) 14, Alkaline Phosphatase 63, Total Protein 5.1, Albumin 3.0 06/01/23 10:55: Glucometer 101 06/01/23 15:30: Glucometer 109 06/01/23 20:22: Glucometer 106 06/02/23 04:55: White Blood Count 7.2, Red Blood Count 2.78, Hemoglobin 9.2, Hematocrit 28, Mean Corpuscular Volume 100, Mean Corpuscular Hemoglobin 33, Mean Corpuscular Hemoglobin Concent 33, Red Cell Distribution Width 14.1, Platelet Count 104, Mean Platelet Volume 11.6, Immature Granulocyte % (Auto) 0, Neutrophils (%) (Auto) 67, Lymphocytes (%) (Auto) 15, Monocytes (%) (Auto) 15, Eosinophils (%) (Auto) 2, Basophils (%) (Auto) 1, Neutrophils # (Auto) 4.8, Lymphocytes # (Auto) 1.1, Monocytes # (Auto) 1.0, Eosinophils # (Auto) 0.2, Basophils # (Auto) 0.0, Immature Granulocyte # (Auto) 0.0, Percent Immature Platelet Fraction 6.0, Sodium Level 138, Potassium Level 4.0, Chloride Level 109, Carbon Dioxide Level 21, Anion Gap 8, Blood Urea Nitrogen 29, Creatinine 1.30, Estimat Glomerular Filtration Rate 57, BUN/Creatinine Ratio 22, Glucose Level 99, Calcium Level 8.3, Corrected Calcium 9.1, Total Bilirubin 0.8, Aspartate Amino Transf (AST/SGOT) 45, Alanine Aminotransferase (ALT/SGPT) 20, Alkaline Phosphatase 72, Total Protein 5.2, Albumin 3.0 06/02/23 05:21: Glucometer 92 06/02/23 11:44: Glucometer 93 06/02/23 15:47: Glucometer 105 06/02/23 19:19: Glucometer 121 06/03/23 04:55: White Blood Count 5.7, Red Blood Count 2.45, Hemoglobin 8.2, Hematocrit 24, Mean Corpuscular Volume 98, Mean Corpuscular Hemoglobin 34, Mean Corpuscular Hemoglobin Concent 34, Red Cell Distribution Width 14.0, Platelet Count 128, Mean Platelet Volume 11.2, Immature Granulocyte % (Auto) 0, Neutrophils (%) (Auto) 64, Lymphocytes (%) (Auto) 16, Monocytes (%) (Auto) 15, Eosinophils (%) (Auto) 4, Basophils (%) (Auto) 0, Neutrophils # (Auto) 3.7, Lymphocytes # (Auto) 0.9, Monocytes # (Auto) 0.9, Eosinophils # (Auto) 0.2, Basophils # (Auto) 0.0, Immature Granulocyte # (Auto) 0.0, Percent Immature Platelet Fraction 3.8, Sodium Level 138, Potassium Level 3.8, Chloride Level 108, Carbon Dioxide Level 23, Anion Gap 7, Blood Urea Nitrogen 28, Creatinine 1.25, Estimat Glomerular Filtration Rate 59, BUN/Creatinine Ratio 22, Glucose Level 110, Calcium Level 8.3, Corrected Calcium 9.2, Total Bilirubin 1.0, Aspartate Amino Transf (AST/SGOT) 50, Alanine Aminotransferase (ALT/SGPT) 29, Alkaline Phosphatase 80, Total Protein 5.1, Albumin 2.9 06/03/23 05:03: Glucometer 101 06/03/23 11:21: Glucometer 118 Discharge Home Medications: Active Scripts Active Senna (Sennosides) 8.6 Mg Tablet 8.6 Mg PO BID Oxyir Tablet (Oxycodone HCl) 5 Mg Tab 5 Mg PO Q6H PRN Reported Vitamin B-12 (Cyanocobalamin (Vitamin B-12)) 1,000 Mcg Tablet 1,000 Mcg PO DAILY Multivitamin 1 Each Tablet 1 Each PO DAILY Pantoprazole Sodium 40 Mg Tablet.dr 40 Mg PO DAILY Metoprolol Succinate 50 Mg Tab.er.24h 50 Mg PO DAILY Atorvastatin Calcium 80 Mg Tablet 80 Mg PO HS Losartan Potassium 100 Mg Tablet 100 Mg PO DAILY Aspirin EC (Aspirin) 81 Mg Tablet.dr 81 Mg PO DAILY Instructions to patient/family Please see electronic discharge instructions given to patient. Diagnosis/Problems Diagnosis/Problems (1) Closed intertrochanteric fracture of right hip Status: Acute Qualifiers: Qualified Codes: S72.141A - Displaced intertrochanteric fracture of right femur, initial encounter for closed fracture Clinical Quality Measures DVT/VTE Risk/Contraindication: Contraindications-Pharm: Other *list below* Other: OR MARIO PENDLETON DO Jun 03, 2023 05:02
[2023-06-03] MEDS: inSUlin ASPART 1 UNIT/0.01 ML (PER UNIT) SC SCH ×2 (05:04→11:23)
[2023-06-03] MEDS: oxyCODONE IMMEDIATE RELEASE 5 MG TABLET PO PRN ×2 (05:15→10:09)
[2023-06-03 05:23] LABS: BASOPHILS % (AUTO) 0 % (0-10); HEMOGLOBIN 8.2 g/dL (13.3-17.7); MEAN CORPUSCULAR VOLUME 98 fL (80-99)
[2023-06-03 05:25] LABS: EOSINOPHILS # (AUTO) 0.2 10^3/uL (0.0-0.3); EOSINOPHILS % (AUTO) 4 % (0-10); HEMATOCRIT 24 % (40-54); LYMPHOCYTES # (AUTO) 0.9 10^3/uL (1.0-4.0); LYMPHOCYTES % (AUTO) 16 % (12-44); MEAN CORPUSCULAR HEMOGLOBIN 34 pg (25-34); MEAN CORPUSCULAR HGB CONC 34 g/dL (32-36); MEAN PLATELET VOLUME 11.2 fL (9.0-12.2); MONOCYTES # (AUTO) 0.9 10^3/uL (0.0-1.0); MONOCYTES % (AUTO) 15 % (0-12); NEUTROPHILS # (AUTO) 3.7 10^3/uL (1.8-7.8); NEUTROPHILS % (AUTO) 64 % (42-75); PLATELET COUNT 128 10^3/uL (130-400); WHITE BLOOD COUNT 5.7 10^3/uL (4.3-11.0)
[2023-06-03 05:50] LABS: ALBUMIN 2.9 GM/DL (3.2-4.5); CALCIUM 8.3 MG/DL (8.5-10.1); CREATININE SERUM 1.25 MG/DL (0.60-1.30); POTASSIUM 3.8 MMOL/L (3.6-5.0); TOTAL PROTEIN 5.1 GM/DL (6.4-8.2)
[2023-06-03 07:31] VITALS: BP 129/61
--- NOTE | 2023-06-03 08:10 | Physical Therapy Daily Note ---
PT Daily Note-Current Subjective Patient agrees to PT. Pain Numeric Pain Scale: 5-Moderate Pain Location: Right Location Body Site: Hip Pain Description: Acute Comment: meds issued Section J - Health Conditions 1. Rarely or not at all 2. Occasionally 3. Frequently 4. Almost constantly 8. Unable to answer Pain Effect on Sleep: 1 Pain Interference with Therapy: 1 Pain Interference w/Day-to-Day: 1 Mental Status Patient Orientation: Normal For Age Transfers SCALE: Activities may be completed with or without assistive devices. 1-Vdngnnmcib-whozoiu completes the activity by him/herself with no assistance from a helper. 5-Set-up or Clean-up Assistance-helper sets up or cleans up; patient completes activity. [place] assists only prior to or following the activity. 4-Supervision or Touching Assistance-helper provides verbal cues and/or touching/steadying and/or contact guard assistance as patient completes activity. Assistance may be provided throughout the activity or intermittently. 3-Partial/Moderate Assistance-helper does LESS THAN HALF the effort. [place] lifts, holds or supports trunk or limbs, but provides less than half the effort. 2-Substantial/Maximal Assistance-helper does MORE THAN HALF the effort. [place] lifts or holds trunk or limbs and provides more than half the effort. 9-Htxctslhf-hmjcei does ALL the effort. Patient does none of the effort to complete the activity. Or, the assistance of 2 or more helpers is required for the patient to complete the activity. If activity was not attempted, code reason: 7-Patient Refused. 9-Not Applicable-not attempted and the patient did not perform the activity before the current illness, exacerbation or injury. 10-Not Attempted due to Environmental Limitations-(lack of equipment, weather restraints, etc.). 88-Not Attempted due to Medical Conditions or Safety Concerns. Sit to Stand (QC): 6 Weight Bearing Right Lower Extremity: Right Partial Weight Bearing Left Lower Extremity: Left Full Weight Bearing Gait Training Distance: 225' Walk 10 feet (QC): 6 Walk 50 ft with 2 Turns(QC): 6 Walk 150 ft (QC): 6 Gait Assistive Device: FWW very slow, step to gait sequence Exercises Seated Therapy Exercises: Ankle pumps, Long arc quads, Hip flexion Seated Reps: 15 (x 2 sets) Assessment Patient requires time to complete all functional tasks and remains up in recliner with needs met. Plan to dismiss to home on this date with home health. Patient progressing slowly with treatment plan due to right hip pain. PT Senior Net C Developer Goals [facility] Goals PT Senior Net C Developer Goals Time Frame: Jun 07, 2023 Roll Left & Right (QC): 6 Sit to Lying (QC): 6 Lying-Sitting on Side/Bed(QC): 6 Sit to Stand (QC): 6 Chair/Abd-ku-Dypxs Xfer(QC): 6 Toilet Transfer (QC): 6 Car Transfer (QC): 6 Does the Patient Walk: Yes Walk 10 feet (QC): 6 Walk 50ft with 2 Turns (QC): 6 Walk 150 ft (QC): 6 Walking 10ft on Uneven Surface: 6 1 Step (curb) (QC): 6 4 Steps (QC): 6 12 Steps (QC): 6 Picking up an Object (QC): 6 PT Plan Treatment/Plan Treatment Plan: Continue Plan of Care Treatment Plan: Bed Mobility, Functional Activity Lloyd, Functional Strength, Gait, Safety, Therapeutic Exercise, Transfers Treatment Duration: Jun 07, 2023 Frequency: 11 times per week Estimated Hrs Per Day: 1 hour per day Patient and/or Family Agrees t: Yes Time Time In: 730 Time Out: 801 DATE: Jun 03, 2023 Total Billed Treatment Time: 31 Total Billed Treatment 1 visit FA x 2 31 min JONY BAE PT Jun 03, 2023 08:10
[2023-06-03] MEDS: DOCUSATE SODIUM 100 MG CAPSULE PO SCH (08:15)
[2023-06-03] MEDS: SENNOSIDES 8.6 MG TABLET PO SCH (08:15)
[2023-06-03] MEDS: ENOXAPARIN 40 MG/0.4 ML SYRINGE SC SCH (08:15)
[2023-06-03] MEDS: PANTOPRAZOLE 40 MG TABLET PO SCH (08:15)
--- NOTE | 2023-06-03 08:31 | Cardiology Progress Note ---
Subjective Date Seen by Provider: Jun 03, 2023 Time Seen by Provider: 08:05 Subjective/Events-last exam Patient is sitting up in chair, denies any chest pain. Patient being discharged home today Objective-Cardiology Exam Last Set of Vital Signs Vital Signs 05/29/23 05/31/23 06/03/23 06/03/23 21:20 08:02 07:31 08:00 Temp 36.2 Pulse 83 Resp 18 B/P (MAP) 129/61 (83) Pulse Ox 95 O2 Delivery Room Air O2 Flow Rate 0.00 FiO2 21 I&O Intake and Output 06/03/23 00:00 Intake Total 890 ml Output Total 675 ml Balance 215 ml Intake Oral 890 ml Output Urine Total 675 ml # Voids 4 # Bowel Movements 2 General: Alert, Oriented X3, Cooperative, No Acute Distress HEENT: Atraumatic Lungs: Clear to Auscultation, Normal Air Movement Heart: Regular Rate, Normal S1, Normal S2, No Murmurs Extremities: No Clubbing, No Cyanosis, No Edema Skin: No Rashes, No Significant Lesion Psych/Mental Status: Mental Status NL, Mood NL Results Lab Laboratory Tests 06/03/23 04:55 A/P-Cardiology Admission Diagnosis right hip fx CAD HTN HLP Assessment/Plan Right hip fracture secondary to fall, s/p repair, Dr. Ryan managing. Coronary artery disease, cardiac catheterization done 12/20/20 showing severe long lesion in the LAD, complex intervention with deployment of 2 stents in the LAD, Oksana 2.75 x 33, followed by Oksana 2.5 x 38 expanded to 2.9mm proximally and 2.7 mm distally with excellent results. Repeat cardiac catheterization was done on December 22, the lesion appeared to be borderline, unable to evaluate FFR d/t position of the left main. Maintained on ASA Stress test done December 2022 showed no ischemia or infarct. History of PVCs/PACs, maintained on beta eryn, asymptomatic, continue to monitor. HTN, controlled, continue to monitor. Hyperlipidemia, well controlled, maintained on Lipitor, monitored as outpatient. ESPERANZA, bilateral mild nonobstructive disease per carotid duplex done February 2022. OK for discharge from cardiology standpoint. F/u in our office in 4-6 weeks Supervisory-Addendum Brief Supervisory Addendum Participated in pt care: history, MDM, physical Personally performed: exam, history, MDM Care discussed with: MONE Results interpretation: Verified all documentation Notes: Patient was seen and evaluated with Rosie, examination performed, management plan was discussed, agree with the current scribed note, I made few changes to the note using Italic font Patient was seen at bedside sitting comfortably, denied any chest pain Okay for discharge from cardiology standpoint and follow-up as an outpatient ROSIE RODRIGUEZ Jun 03, 2023 08:31 DEB COLEMAN MD Jun 03, 2023 09:10
== END 2023-06-03 14:00 | disposition home health service (06) | DRG 481 ==
LOC: EDUNIT# 18:10 → ER 18:14 → 4TH 20:27
PROVIDERS: ADMIT Internal Medicine; ATTEND Internal Medicine
PROC: 0QS636Z Reposition Right Upper Femur with Intramedullary Internal Fixation Device, Percutaneous Approach (ICD-10-PCS; principal; 2023-06-02)
DX: S72.141A Displaced intertrochanteric fracture of right femur, initial encounter for closed fracture (principal); D62 Acute posthemorrhagic anemia; N17.9 Acute kidney failure, unspecified; I12.9 Hypertensive chronic kidney disease with stage 1 through stage 4 chronic kidney disease, or unspecified chronic kidney disease; N18.31 Chronic kidney disease, stage 3a; I25.10 Atherosclerotic heart disease of native coronary artery without angina pectoris; I49.3 Ventricular premature depolarization; I49.1 Atrial premature depolarization; I65.23 Occlusion and stenosis of bilateral carotid arteries; K21.9 Gastro-esophageal reflux disease without esophagitis; E78.5 Hyperlipidemia, unspecified; Z95.5 Presence of coronary angioplasty implant and graft; Z79.82 Long term (current) use of aspirin; Z79.899 Other long term (current) drug therapy; W18.39XA Other fall on same level, initial encounter; Y93.K1 Activity, walking an animal
CPT/HCPCS: 36415; 71045; 73552; 73562; 76000; 80053; 82947; 85007; 85025; 85027; 85610; 85730; 87081; 93005; 93041; 93306; 94664; 94760